=== PATIENT | male | born 1955 | race Caucasian/White ===

== ENCOUNTER 2020-03-20 11:10 | Outpatient (CLI) | payer BC, SELFPAY ==
[2020-03-21 02:13] LABS: SARS-CoV-2 RNA PCR Positive
== END 2020-03-20 11:11 | disposition home or self-care (01) ==
PROVIDERS: PCP Internal Medicine; Visit Provider Internal Medicine
DX: U07.1 COVID-19 (principal)
CPT/HCPCS: 87635; C9803; U0003

== ENCOUNTER 2020-05-08 11:57 | Outpatient (CLI) | payer BC, SELFPAY ==
--- NOTE | ~2020-05-08 | XR_ITS ---
EXAMINATION: XR chest 2V EXAM DATE: 05/08/2020 12:10 INDICATION: Chest pain center chest when abducting arms, heartburn x3mo. TECHNIQUE: Frontal and lateral projections of the chest obtained and reviewed. There is no prior tamera dy for comparison. FINDINGS: The lungs are clear. There are no pleural effusions. The cardiomediastinal silhouette is within normal limits. There is no pneumothorax suspected. The bones and soft tissues are unremarkab le. IMPRESSION: Unremarkable chest x-ray exam. 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
== END 2020-05-08 11:58 | disposition home or self-care (01) ==
LOC: CHSIMG 11:59
PROVIDERS: PCP Internal Medicine; Visit Provider Internal Medicine
DX: R07.9 Chest pain, unspecified (principal)
CPT/HCPCS: 71046

== ENCOUNTER 2020-05-20 12:31 | Outpatient (CLI) | payer BC, SELFPAY ==
--- NOTE | 2020-05-20 13:00 | EST_ITS ---
Patient Info Name: Ant Morgan Age: 64 years : 1955 Gender: Male Ht: 72 in Wt: 237 lbs BSA: 2.37 m2 HR: 67 bpm BP: 150 / 84 mmHg Heart Rhythm: Sinus Rhythm Technical Quality: Excellent Exam Date: 05/20/2020 12:49 PM Exam Location: [facility] Patient Status: Outpatient Admit Date: 05/20/2020 Staff Ordering Physician: Gallo Jacob MD Attending Provider: Gallo Jacob MD Exercise Technologist: Gracia Michaels CRT Exercise Physician: Niharika Ordonez CEP Exam Type: CA stress test treadmill Study Info Indications AbnormalEKG - An exercise stress test was performed. History/Risk Factors Hypertension: Yes Dyslipidemia: Yes Diabetes Mellitus: No History/Risk Factors HTN, Dyslipidemia. Abnormal EKG. Summary 1. 1. Abnormal Marcus exercise stress test for ischemic ST changes by ECG criteria. 2. 2. Good functional capacity, achieving 10 METs of workload. 3. 3. Appropriate HR response to exercise. 4. 4. Hypertensive response to exercise. 5. 5. Appropriate HR recovery at 1 minute post exercise. 6. 6. No imaging with stress testing. 7. 7. Dr. Jacob informed of the above results. Protocol: Marcus Stress ECG Details Stage: REST Duration (min): 0 min : 55 sec Speed (mph): 0.0 Grade (%): 0 HR (bpm): 65 SBP (mmHg): 150 DBP (mmHg): 84 METS: --- Stage: REST Duration (min): 2 min : 7 sec Speed (mph): 0.0 Grade (%): 0 HR (bpm): 75 SBP (mmHg): 150 DBP (mmHg): 84 METS: --- Stage: STAGE 1 Duration (min): 1 min : 0 sec Speed (mph): 1.7 Grade (%): 10 HR (bpm): 103 SBP (mmHg): 150 DBP (mmHg): 84 METS: --- Stage: STAGE 1 Duration (min): 2 min : 0 sec Speed (mph): 1.7 Grade (%): 10 HR (bpm): 107 SBP (mmHg): 150 DBP (mmHg): 84 METS: --- Stage: STAGE 1 Duration (min): 3 min : 0 sec Speed (mph): 1.7 Grade (%): 10 HR (bpm): 102 SBP (mmHg): 199 DBP (mmHg): 66 METS: --- Stage: STAGE 2 Duration (min): 1 min : 0 sec Speed (mph): 2.5 Grade (%): 12 HR (bpm): 120 SBP (mmHg): 199 DBP (mmHg): 66 METS: --- Stage: STAGE 2 Duration (min): 2 min : 0 sec Speed (mph): 2.5 Grade (%): 12 HR (bpm): 126 SBP (mmHg): 199 DBP (mmHg): 66 METS: --- Stage: STAGE 2 Duration (min): 3 min : 0 sec Speed (mph): 2.5 Grade (%): 12 HR (bpm): 133 SBP (mmHg): 204 DBP (mmHg): 86 METS: --- Stage: STAGE 3 Duration (min): 1 min : 0 sec Speed (mph): 3.4 Grade (%): 14 HR (bpm): 147 SBP (mmHg): 204 DBP (mmHg): 86 METS: --- Stage: STAGE 3 Duration (min): 2 min : 0 sec Speed (mph): 3.4 Grade (%): 14 HR (bpm): 161 SBP (mmHg): 204 DBP (mmHg): 86 METS: --- Stage: STAGE 3 Duration (min): 3 min : 0 sec Speed (mph): 3.4 Grade (%): 14 HR (bpm): 167 SBP (mmHg): 206 DBP (mmHg): 102 METS: ---
== END 2020-05-20 12:32 | disposition home or self-care (01) ==
LOC: CHSCARD 12:32
PROVIDERS: PCP Internal Medicine; Visit Provider Internal Medicine
DX: R94.31 Abnormal electrocardiogram [ECG] [EKG] (principal)
CPT/HCPCS: 93017

== ENCOUNTER 2020-05-31 02:19 | Outpatient (CLI) | payer BC, SELFPAY ==
[2020-05-31 19:10] LABS: SARS-CoV-2 RNA PCR Negative
== END 2020-05-31 02:20 | disposition home or self-care (01) ==
LOC: ANHCOVIDDT 02:19
PROVIDERS: PCP Internal Medicine; Visit Provider Specialist
DX: Z01.812 Encounter for preprocedural laboratory examination (principal); Z20.828 Contact with and (suspected) exposure to other viral communicable diseases
CPT/HCPCS: 87635; C9803; U0003

== ENCOUNTER 2020-06-03 08:30 | Day surgery (SDC) | payer BC, SELFPAY ==
[2020-05-31 15:56] VITALS: BMI 31.4
[2020-06-03] VITALS (10 sets, daily range): BP systolic 103–138; BP diastolic 61–76; PULSE 42–47; RESP 11–23; TEMP 36.2–36.6; O2SAT 96–100; BMI 30.9
[2020-06-03 07:35] LABS: Basophils Percent Auto 0.6 % (0.2-1.2); Eosinophils Absolute Auto 0.1 K/mm3 (0-0.3); Eosinophils Percent Auto 1.2 % (0-4.4); Hematocrit 48.4 % (42.0-52.0); Hemoglobin 17.1 g/dL (14.0-18.0); Immature Granulocyte Absolute 0.04 K/mm3 (0.00-0.031); Immature Granulocyte Percent A 0.6 % (0-0.5); Lymphocytes Absolute Auto 1.37 K/mm3 (0.9-3.2); Lymphocytes Percent Auto 19.9 % (18.3-44.2); Mean Corpuscular HGB Conc 35.3 g/dl (32-36); Mean Corpuscular Hemoglobin 32.1 pg (26-34); Mean Platelet Volume 10.5 fl (7.4-10.4); Monocytes Absolute Auto 0.5 K/mm3 (0.1-0.6); Monocytes Percent Auto 7.6 % (2.6-8.5); Neutrophils Absolute Auto 4.8 K/mm3 (1.3-6.7); Neutrophils Percent Auto 70.1 % (45.5-73.1); Platelet Count Result 151 k/mm3 (150-375); Red Blood Count 5.32 M/mm3 (4.6-6.20); Red Cell Distribution Width 12.6 % (11.5-14.5); White Blood Count 6.9 K/mm3 (4.5-10.0)
[2020-06-03 07:44] LABS: INR 0.9; Prothrombin Time 12.9 Seconds (11.1-14.7)
--- NOTE | 2020-06-03 08:32 | WPDMODSED ---
Moderate Sedation Note-Pt Data Patient Data Diagnosis: Atypical chest pain Abnormal stress test Hypertension Present Complaint: 64-year-old man with history of chest pain with change in body positions, history is very atypical of angina. Electrocardiographically abnormal stress test Procedure to be performed/Plan: Left heart catheterization Allergies Allergy/AdvReac Type Severity Reaction Status Date / Time No Known Allergies Allergy Verified 05/31/20 15:55 Home Medications Medication Instructions Recorded Confirmed Type allopurinol 100 mg tablet 200 mg PO BID 05/22/20 06/03/20 History aspirin 81 mg tablet,delayed 81 mg PO DAILY 05/22/20 06/03/20 History release hydrochlorothiazide 12.5 mg capsule 12.5 mg PO DAILY 05/22/20 06/03/20 History lisinopril 5 mg tablet 5 mg PO DAILY 05/22/20 06/03/20 History atenolol 12.5 mg PO DAILY 06/03/20 06/03/20 History atorvastatin 5 mg PO DAILY 06/03/20 06/03/20 History magnesium 1 tablet PO DAILY 06/03/20 06/03/20 History omega-3 fatty acids [Fish Oil] 1 cap PO DAILY 06/03/20 06/03/20 History Current Medications: Active Medications Sodium Chloride (Normal Saline Iv) 500 mls @ 100 mls/hr IV CONT .Q5H ASHELY Sedation/Anesthesia: No previous sedation/anesthesia problems (including family history). [facility] Past Medical History Medical History (Updated 05/22/20 @ 11:00 by Trever Pham DO) Gout HTN (hypertension) Hyperlipidemia Surgical History Surgical History (Updated 05/22/20 @ 10:37 by Elizabeth Olea CMA) History of hernia surgery Family History Family History (Updated 05/22/20 @ 10:37 by Elizabeth Olea CMA) Father Heart disease Gout Grandparent Heart disease Social History Social History (Updated 05/22/20 @ 10:38 by Elizabeth Olea CMA) Smoking packs per day: 1 Smoking cigarettes per day: 20.0 Years smoked: 15 Smoking pack-years: 15.00 Smoking status: Former smoker Alcohol intake: current Mod Sed Physical Exam Physical Exam Pre Procedural Exam: Normal: Appearance, Neck, Throat, Airway, Lungs, Heart Size, Heart Rate, Heart Rhythm, Neuro Exam and Extremities Hours since solid foods: 12 Hours since liquid intake: 12 Internal Medicine - PN: Obj Da Vital Signs Vital Signs: Vital Signs - 24 hr 06/03/20 07:40 Temperature 36.6 C Pulse Rate 47 L Respiratory Rate 17 Blood Pressure 138/66 Pulse Oximetry 98 Meds/Results Medications: Active Medications Generic Name Dose Route Start Last Admin Trade Name Aurelianoq PRN Reason Stop Dose Admin Sodium Chloride 500 mls @ 100 mls/hr 06/03/20 02:55 Normal Saline Iv IV CONT .Q5H ASHELY Labs CBC & Chem 7: 06/03/20 07:25 06/03/20 07:25 Labs: Laboratory Results - last 24 hr 06/03/20 06/03/20 07:25 07:25 WBC 6.9 RBC 5.32 Hgb 17.1 Hct 48.4 MCV 91.0 MCH 32.1 MCHC 35.3 RDW 12.6 Plt Count 151 MPV 10.5 H Immature Gran % (Auto) 0.6 H Neut % (Auto) 70.1 Lymph % (Auto) 19.9 [place] % (Auto) 7.6 Eos % (Auto) 1.2 Baso % (Auto) 0.6 Lymph # (Auto) 1.37 [place] # (Auto) 0.5 Eos # (Auto) 0.1 Baso # (Auto) 0.0 Abs Immat Gran (auto) 0.04 H Absolute Neuts (auto) 4.8 Absolute Nucleated RBC 0.0 Nucleated RBC % 0.0 PT 12.9 INR 0.9 ASA Classification/Sedation ASA Classification/Sedation ASA Class: II Emergent: No Risks: Risks, benefits and alternatives explained and patient/family accepted plan for sedation. Patient re-evaluated immediately prior to sedation.
[2020-06-03 08:36] LABS: Anion Gap 8 mmol/L (8-16); Blood Urea Nitrogen 21 mg/dL (9-20); Calcium 9.4 mg/dL (8.4-10.2); Carbon Dioxide 30 mmol/L (22-30); Chloride 102 mmol/L (98-107); Estimated CRCL calculation 83 ml/min; Estimated Glomerular Filt Rate > 60; Glucose 111 mg/dL (75-110); Potassium 3.8 mmol/L (3.4-5.0); Sodium 140 mmol/L (137-145)
--- NOTE | 2020-06-03 09:28 | WPDCARDPROC ---
Cardiac Cath Procedure Note Date of procedure:: 06/03/20 Performing physician:: Robert Ruiz MD Indication:: abnormal stress test Brief clinical history:: this is a 64-year-old man with no previous history of coronary disease. Has hypertension. Describes intermittent episodes of nonexertional chest pain that are non anginal by history. Exercise stress test was electrocardiographically abnormal Procedure Procedure performed:: coronary angiography left ventriculography Angio-Seal to femoral artery Sedation/Medication given:: fentanyl 50 mg Versed 2 mg case start time 9:03 a.m. case end time 9:21 a.m. sedation provided by Forrest Oliva RN, trained observer Access site:: right femoral artery Estimated blood loss:: 10-15 cc Procedure note:: patient was brought to the cardiac catheterization lab in the postabsorptive state the femoral triangle was prepared and draped in the usual fashion. Anesthesia was provided with 1% lidocaine infiltrated locally. Using the modified Seldinger technique the right common femoral artery was punctured and a 5 [place] vascular sheath was placed. After this left heart catheterization was carried out. A 5 [place] angled pigtail catheter was used to measure left-sided hemodynamics and to injected LV g in the our AO projection after this the pigtail catheter was removed. A 5 [place] FL4 catheter was used to engage inject the left coronary artery in multiple projections following this a 5 [place] JR4 catheter was used to engage inject the right coronary artery. The cine angiograms were then reviewed and the case was terminated angiogram was done of the femoral artery through the sheath after which a 6 [place] Angio-Seal device was deployed with a good hemostatic result. He was taken back to the holding area in stable condition. 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 Findings:: Hemodynamics: Central aortic pressure 115 over 46. Left ventricle 115 over 10 end-diastolic 12. No systolic gradient upon pullback across the aortic valve. Left ventricle: The LV is of normal size all segments contract appropriately the global ejection fraction I would visually estimated to be 50-55% the left main coronary is widely patent and large in caliber the LAD is a moderate caliber vessel extending down to around the apex the LAD and its branches are angiographically unremarkable the circumflex is large in caliber and dominant to the posterior circulation the circumflex the marginal as well as the posterior branches are angiographically unremarkable right coronary artery is small in caliber non dominant and gives rise to 2 right ventricular acute marginal branches. Right coronary artery is angiographically unremarkable. Conclusion:: 1. Left coronary dominant circulation with no evidence of coronary disease 2. normal left ventricular systolic function 3. Angio-Seal to right femoral artery 4. false positive stress test Robert Ruiz MD [facility]
--- NOTE | 2020-06-03 12:54 | SUR.PHASEII ---
1250- Patient discharged following LHC. Patient given discharge instructions and educational handouts on moderate sedation, LHC, and angioseal. All questions answered by RN- patient verbalizes understanding of information provided. VSS, denies pain, R groin soft and nontender with no evidence of bleeding or hematoma, palpable distal pulse, and patient A & O x4 at time of discharge. PIV removed. Patient picked up in vehicle by and taken out in wheelchair by staff.
== END 2020-06-03 12:50 | disposition home or self-care (01) ==
PROVIDERS: PCP Internal Medicine; Visit Provider Specialist
PROC: 4A023N7 Measurement of Cardiac Sampling and Pressure, Left Heart, Percutaneous Approach (ICD-10-PCS; CPT 93452; principal; 2020-06-03 08:30)
DX: R94.39 Abnormal result of other cardiovascular function study (principal); R07.89 Other chest pain; I10 Essential (primary) hypertension; E78.5 Hyperlipidemia, unspecified; M10.9 Gout, unspecified; Z87.891 Personal history of nicotine dependence
CPT/HCPCS: 36415; 80048; 85025; 85610; 93458; C1760; C1887; C1894; G0269

== ENCOUNTER 2021-01-24 07:45 | Outpatient (RCR) | payer OTHER, SELFPAY ==
--- NOTE | 2021-01-24 07:38 | PTOPEVAL ---
Thank you for referring Ant Morgan to [facility].? The patient is scheduled to be seen for therapy? __2__x/week for 12 visits. Please review, sign, date and return this plan of care MARVIN. I agree with and certify that the following plan of care is medically necessary. Referring Physician Date Admitting Provider: Attending Provider: Navneet Strickland, Referring Provider: *PT Outpatient Evaluation Start: 01/24/21 07:05 Freq: Status: Active Protocol: Document 01/24/21 07:00 TEE (Rec: 01/24/21 07:36 TEE [id number]) Therapy Assessment Status Assessment Status Assessment Status Evaluation Outpatient Past Medical History Neurological History Hx Neurological Disorders No Significant History Cardiovascular History Hx Hypercholesterolemia Yes Hx Hypertension Yes Respiratory History Hx Respiratory Disorders No Significant History Gastrointestinal History Hx Hernia Yes: 2006 Genitourinary History Hx Genitourinary Disorders No Significant History Musculoskeletal History Hx Gout Yes Hematological History Hx Hematological Disorders No Significant History Endocrine History Hx Endocrine Disorders No Significant History HEENT History Hx Tonsillectomy Yes Integumentary History Hx Skin Disorders No Significant History Reproductive History Hx Reproductive Disorders No Significant History Psychosocial History Hx Psychiatric Disorders No Significant History Pain History History of Any Previous or Ongoing No Significant History Instance of Pain Anesthesia History Hx Anesthesia Reactions No Significant History Other History Hx Cancer Yes: multiple skin CA spots removed from head/arm over 20 years Evaluation Information Problem Diagnosis s/p rotator cuff repair Onset 10/24/20 Subjective Information Pt. 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 He reports that on 10/24/20 he underwent surgery. He states that he has been using a CPM at home. He states that he has not been doing any other exercise at home. He describes no pain at rest. He states that he cannot reach to get his wallet out of his pants and cant put his belt on due to stiffness. He states that he cannot
--- NOTE | 2021-03-05 14:44 | PTOPEVAL ---
Thank you for referring Ant Morgan to [facility].? The patient is scheduled to be seen for therapy? ____x/week for ___ weeks. Please review, sign, date and return this plan of care MARVIN. I agree with and certify that the following plan of care is medically necessary. Referring Physician Date Admitting Provider: Attending Provider: Navneet Strickland, Referring Provider: *PT Outpatient Evaluation Start: 01/24/21 07:05 Freq: Status: Active Protocol: Document 03/04/21 10:00 RUST (Rec: 03/05/21 14:43 RUST [id number]) Therapy Assessment Status Assessment Status Assessment Status Re-evaluation Outpatient Past Medical History Neurological History Hx Neurological Disorders No Significant History Cardiovascular History Hx Hypercholesterolemia Yes Hx Hypertension Yes Respiratory History Hx Respiratory Disorders No Significant History Gastrointestinal History Hx Hernia Yes: 2006 Genitourinary History Hx Genitourinary Disorders No Significant History Musculoskeletal History Hx Gout Yes Hematological History Hx Hematological Disorders No Significant History Endocrine History Hx Endocrine Disorders No Significant History HEENT History Hx Tonsillectomy Yes Integumentary History Hx Skin Disorders No Significant History Reproductive History Hx Reproductive Disorders No Significant History Psychosocial History Hx Psychiatric Disorders No Significant History Pain History History of Any Previous or Ongoing No Significant History Instance of Pain Anesthesia History Hx Anesthesia Reactions No Significant History Other History Hx Cancer Yes: multiple skin CA spots removed from head/arm over 20 years Evaluation Information Problem Diagnosis s/p rotator cuff repair Onset 10/24/20 Subjective Information patient reports he feels good Query Text:As Reported By Patient/ at rest, but has increased Family pain in the R shoulder with reaching/lifting objects away from his body. he reports he continues to be on a 10lb lifting restriction below his waist. he reports he returns to the MD tomorrow 03/05/21. he reports he does not feel ready to return to work yet, and reports he does not want to lucero it. he reports he does feel therapy is helping his
--- NOTE | 2021-04-15 11:09 | PTOPEVAL ---
Thank you for referring Ant Morgan to [facility].? The patient is scheduled to be seen for therapy? ____x/week for ___ weeks. Please review, sign, date and return this plan of care MARVIN. I agree with and certify that the following plan of care is medically necessary. Referring Physician Date Admitting Provider: Attending Provider: Navneet Strickland, Referring Provider: *PT Outpatient Evaluation Start: 01/24/21 07:05 Freq: Status: Active Protocol: Document 04/15/21 09:59 RUST (Rec: 04/15/21 11:09 RUST [id number]) Therapy Assessment Status Assessment Status Assessment Status Re-evaluation Outpatient Past Medical History Neurological History Hx Neurological Disorders No Significant History Cardiovascular History Hx Hypercholesterolemia Yes Hx Hypertension Yes Respiratory History Hx Respiratory Disorders No Significant History Gastrointestinal History Hx Hernia Yes: 2005 Genitourinary History Hx Genitourinary Disorders No Significant History Musculoskeletal History Hx Gout Yes Hematological History Hx Hematological Disorders No Significant History Endocrine History Hx Endocrine Disorders No Significant History HEENT History Hx Tonsillectomy Yes Integumentary History Hx Skin Disorders No Significant History Reproductive History Hx Reproductive Disorders No Significant History Psychosocial History Hx Psychiatric Disorders No Significant History Pain History History of Any Previous or Ongoing No Significant History Instance of Pain Anesthesia History Hx Anesthesia Reactions No Significant History Other History Hx Cancer Yes: multiple skin CA spots removed from head/arm over 20 years Evaluation Information Problem Diagnosis s/p rotator cuff repair Onset 10/24/20 Subjective Information patient reports he feels Query Text:As Reported By Patient/ alright this date. he reports Family he has no pain at rest, but still pain with lifting overhead and out to his side with resistance and to the side with arom. he reports pain does not reach more than 3/10. he reports his shoulder is stronger than his last re- evaluation. Pain Assessment Timing of Pain Assessment Timing of Pain Assessment Assessment Pain Scale Pain Scale Used Numeric (1 - 10) Self Report Pain Assessment Right Shoulder(s) Reported Pain Level
== END 2021-04-24 18:00 | disposition still patient (30) ==
LOC: CHSPT 07:45
PROVIDERS: Visit Provider Orthopaedic Surgery Orthopaedic Surgery of the Spine
DX: S46.011A Strain of muscle(s) and tendon(s) of the rotator cuff of right shoulder, initial encounter (principal); Z98.890 Other specified postprocedural states; M25.511 Pain in right shoulder
CPT/HCPCS: 97014; 97110; 97161; 97530; G0283

== ENCOUNTER 2021-04-28 08:59 | Outpatient (RCR) | payer OTHER, SELFPAY ==
--- NOTE | 2021-05-06 10:00 | PTOPEVAL ---
Thank you for referring Ant Morgan to [facility].? The patient is scheduled to be seen for therapy? ____x/week for ___ weeks. Please review, sign, date and return this plan of care MARVIN. I agree with and certify that the following plan of care is medically necessary. Referring Physician Date Admitting Provider: Attending Provider: Navneet Strickland, Referring Provider: *PT Outpatient Evaluation Start: 05/01/21 09:44 Freq: Status: Active Protocol: Document 05/01/21 09:30 [facility] (Rec: 05/06/21 10:00 [facility] [email or web address]) Therapy Assessment Status Assessment Status Assessment Status Progress Outpatient Past Medical History Neurological History Hx Neurological Disorders No Significant History Cardiovascular History Hx Hypercholesterolemia Yes Hx Hypertension Yes Respiratory History Hx Respiratory Disorders No Significant History Gastrointestinal History Hx Hernia Yes: 2006 Genitourinary History Hx Genitourinary Disorders No Significant History Musculoskeletal History Hx Gout Yes Hematological History Hx Hematological Disorders No Significant History Endocrine History Hx Endocrine Disorders No Significant History HEENT History Hx Tonsillectomy Yes Integumentary History Hx Skin Disorders No Significant History Reproductive History Hx Reproductive Disorders No Significant History Psychosocial History Hx Psychiatric Disorders No Significant History Pain History History of Any Previous or Ongoing No Significant History Instance of Pain Anesthesia History Hx Anesthesia Reactions No Significant History Other History Hx Cancer Yes: multiple skin CA spots removed from head/arm over 20 years Evaluation Information Problem Diagnosis s/p rotator cuff repair Onset 10/24/20 Additional Evaluation Detail quick dash = 27% functionally declined Subjective Information patient reports he is feeling Query Text:As Reported By Patient/ stronger week by week. he Family reports he continues to have pain in the R shoulder with movement, but mostly only directly out to his side. he reports he is able to lift heavier weight with the R hand , but still struggles with anything overhead and more than 5lbs. he reports he is restricted to 5lbs overhead lifting and
--- NOTE | 2021-06-02 07:31 | PTOPEVAL ---
Thank you for referring Ant Hodges to [facility].? The patient is scheduled to be seen for therapy? ____x/week for ___ weeks. Please review, sign, date and return this plan of care MARVIN. I agree with and certify that the following plan of care is medically necessary. Referring Physician Date Admitting Provider: Attending Provider: Navneet Strickland, Referring Provider: *PT Outpatient Evaluation Start: 05/01/21 09:44 Freq: Status: Active Protocol: Document 05/30/21 10:00 [facility] (Rec: 06/02/21 07:30 [facility] Filej) Therapy Assessment Status Assessment Status Assessment Status Discharge - Pt Not Present Outpatient Past Medical History Neurological History Hx Neurological Disorders No Significant History Cardiovascular History Hx Hypercholesterolemia Yes Hx Hypertension Yes Respiratory History Hx Respiratory Disorders No Significant History Gastrointestinal History Hx Hernia Yes: 2006 Genitourinary History Hx Genitourinary Disorders No Significant History Musculoskeletal History Hx Gout Yes Hematological History Hx Hematological Disorders No Significant History Endocrine History Hx Endocrine Disorders No Significant History HEENT History Hx Tonsillectomy Yes Integumentary History Hx Skin Disorders No Significant History Reproductive History Hx Reproductive Disorders No Significant History Psychosocial History Hx Psychiatric Disorders No Significant History Pain History History of Any Previous or Ongoing No Significant History Instance of Pain Anesthesia History Hx Anesthesia Reactions No Significant History Other History Hx Cancer Yes: multiple skin CA spots removed from head/arm over 20 years PT Clinical Summary Clinical Summary Protocol: PTEVCODE PT Clinical Summary mr. hodges has called in to report he is unable to make it to therapy today due to a family emergency. 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 he is now able to lift and raise over 10lbs above his head in repetition, 30+lbs below his waist in repetition, and displays WFL R shoulder mobility without pain. he reports no fears or hesitations about returning to his prior lev
== END 2021-05-27 10:33 | disposition home or self-care (01) ==
LOC: CHSPT 08:59
PROVIDERS: Visit Provider Orthopaedic Surgery Orthopaedic Surgery of the Spine
DX: S46.011A Strain of muscle(s) and tendon(s) of the rotator cuff of right shoulder, initial encounter (principal); Z98.890 Other specified postprocedural states; M25.511 Pain in right shoulder
CPT/HCPCS: 97110; 97140; 97530

== ENCOUNTER 2021-09-28 11:38 | Inpatient (IN) | payer BC, MEDICARE, SELFPAY ==
[2021-09-28] VITALS (21 sets, daily range): BP systolic 98–124; BP diastolic 46–70; PULSE 59–72; RESP 13–23; TEMP 36.1–37.1; O2SAT 93–100
--- NOTE | ~2021-09-28 | XR_ITS ---
EXAMINATION: XR abdomen NG/feed tube insert INDICATION: Nasogastric tube insertion TECHNIQUE: Portable AP KUB-NG at 1401 hours COMPARISON: CT from today FINDINGS: The nasogastric tube is in the stomach. Multiple dilated loops of small bowel are evident. Contrast from earlier CT partially opacifies the urinary tract. IMPRESSION: 1. Nasogastric tube in the stomach. 2. Small bowel obstruction. Reviewed, dictated and finalized at location A.
--- NOTE | ~2021-09-28 | XR_ITS ---
EXAMINATION: XR sm bowel follow through WS EXAM DATE: 09/29/2021 10:10 INDICATION: Small bowel obstruction, hypaque thru NG. TECHNIQUE: Television Tube Inspector radiograph was acquired. Omnipaque/water soluble solution administered for small flakito wel exam performed by radiologist Navneet Nuñez M.D.. Spot images of the terminal ileum were acquired. Pulsed dose reduction fluoroscopy was used with fluoroscopic time of 0.0 minutes. A total of 7 i mages obtained for the exam. Correlation is made to CT abdomen pelvis from yesterday. FINDINGS: Television Tube Inspector image demonstrates feeding tube in expected position. There are multiple loops of sev erely dilated jejunum. The ileum is normal in caliber. No masses identified. There is a normal transi t time to the colon of 1.5 hours. Appendix fills with contrast. No contrast extravasation. IMPRESSION: Severely distended jejunum, normal calibered ileum. Appearance most consistent with part ial small bowel obstruction, normal transit time. Reviewed, dictated and finalized at location A. IMPRESSION: Severely distended jejunum, normal calibered ileum. Appearance mos t consistent with partial small bowel obstruction, normal transit time.
--- NOTE | ~2021-09-28 | CT_ITS ---
EXAMINATION: CT abdomen pelvis w con INDICATION: Abdominal distention TECHNIQUE: Computed tomographic images of the abdomen and pelvis were obtained after the administrati on of 100 cc of Omnipaque 350 intravenous contrast. The dose-length product (DLP) was 1067.41 mGy-cm. Automated exposure control and iterative reconstruction technique were employed. COMPARISON: None available FINDINGS: Minimal dependent atelectasis is present in the lung bases. The heart size is normal. Calci fied pulmonary nodules and calcified right hilar and mediastinal lymph nodes are consistent with old granulomatous disease. Stones are present in the gallbladder which is mildly distended. Punctate calc ifications in an otherwise normal spleen likely represent healed granulomatous disease. The liver, pa ncreas, and adrenal glands are normal. Hypoattenuating lesions in the kidneys, measuring up to 6 mm o n the right, are too small to characterize but likely represent cysts. There is a 3.6 cm fusiform inf rarenal abdominal aortic aneurysm. No pathologically enlarged abdominal or pelvic lymph nodes are myla ntified. There are multiple moderately dilated loops of fluid-filled small bowel. There is a possible transition point in left mid abdomen (coronal reconstructed images 57-60). There is a moderate volum e of liquid stool in the colon. The appendix is normal. There is severe lumbar spondylosis. 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 IMPRESSION: 1. Dilated small bowel with possible transition in the left midabdomen, consistent with obstruction. 2. Cholelithiasis and gallbladder distention which could reflect cholecystitis. Recommend correlation for right upper quadrant tenderness. 3. Fusiform infrarenal abdominal aortic aneurysm. Reviewed, dictated and finalized at location A. IMPRESSION: 1. Dilated small bowel with possible transition in the left midabdomen, consist ent with obstruction. 2. Cholelithiasis and gallbladder distention which could reflect cholecystitis. Recommend correlation for right upper quadrant tenderness. 3. Fusiform infrarenal abdominal aortic aneurysm.
--- NOTE | ~2021-09-28 | US_ITS ---
EXAMINATION: US abdomen limited DATE: 09/28/2021 13:48 INDICATION: Right upper quadrant pain, TECHNIQUE: Multiple grayscale and Doppler ultrasound images of the abdomen were obtained. COMPARISON: CT from today FINDINGS: Bowel gas obscures visualization of the pancreas. The liver is normal with normal echogenic ity and echotexture. No surface nodularity. Normal hepatopetal flow in the main portal vein. A stone is present in the gallbladder which is distended. There is no definite gallbladder wall thickening or pericholecystic fluid. The normal common bile duct measures 5 mm. There was no sonographic [place] si gn however sensitivity is diminished by pain medication. IMPRESSION: 1. Gallbladder distention and cholelithiasis without definite pericholecystic fluid or gallbladder wa ll thickening. Findings are equivocal for acute cholecystitis. Consider nuclear hepatobiliary scan. Reviewed, dictated and finalized at location A. IMPRESSION: 1. Gallbladder distention and cholelithiasis without definite pericholecystic f luid or gallbladder wall thickening. Findings are equivocal for acute cholecyst itis. Consider nuclear hepatobiliary scan.
[2021-09-28 12:11] LABS: Basophils Percent Auto 0.2 % (0.2-1.2); Eosinophils Percent Auto 0.2 % (0-4.4); Hematocrit 48.5 % (42.0-52.0); Hemoglobin 16.7 g/dL (14.0-18.0); Immature Granulocyte Absolute 0.03 K/mm3 (0.00-0.031); Immature Granulocyte Percent A 0.5 % (0-0.5); Immature Platelet Fraction Pct 5.7 % (0.9-11.2); Lymphocytes Percent Auto 9.5 % (18.3-44.2); Mean Corpuscular HGB Conc 34.4 g/dl (32-36); Mean Corpuscular Hemoglobin 31.2 pg (26-34); Mean Corpuscular Volume 90.5 fl (80-100); Mean Platelet Volume 10.6 fl (7.4-10.4); Monocytes Absolute Auto 0.4 K/mm3 (0.1-0.6); Monocytes Percent Auto 6.8 % (2.6-8.5); Neutrophils Absolute Auto 5.3 K/mm3 (1.3-6.7); Neutrophils Percent Auto 82.8 % (45.5-73.1); Platelet Count Result 146 k/mm3 (150-375); Red Blood Count 5.36 M/mm3 (4.6-6.20); Red Cell Distribution Width 12.7 % (11.5-14.5); White Blood Count 6.3 K/mm3 (4.5-10.0)
[2021-09-28 12:19] LABS: Alanine Aminotransferase 20 U/L (4-50); Albumin Level 4.3 g/dL (3.5-5.1); Alkaline Phosphatase 57 U/L (38-126); Anion Gap 8 mmol/L (8-16); Aspartate Amino Transferase 25 U/L (17-59); Bilirubin,Total 1.6 mg/dL (0.2-1.3); Blood Urea Nitrogen 21 mg/dL (9-20); Calcium 8.3 mg/dL (8.4-10.2); Carbon Dioxide 28 mmol/L (22-30); Chloride 97 mmol/L (98-107); Estimated CRCL calculation 82 ml/min; Estimated Glomerular Filt Rate > 60; Glucose 129 mg/dL (65-110); Lipase 30 U/L (23-300); Potassium 3.6 mmol/L (3.4-5.0); Sodium 133 mmol/L (137-145)
[2021-09-28 12:22] LABS: Add Urine Microscopic? YES; Appearance Urine Clear (Clear); Bacteria Urine Trace /hpf; Bilirubin Urine Negative (Negative); Blood Urine Negative (Negative); Color Urine Amber (Yellow); Glucose Urine UA Negative (Negative); Ketones Urine Trace mg/dL (Negative); Leukocyte Esterase Ur Negative LEU/UL (Negative); Mucus Urine Rare /lpf; Nitrate Urine Negative (Negative); Protein Urine Negative (Negative); RBC Urine 0-2 /hpf (0-2); Urobilinogen Urine Negative mg/dL (<2.0); WBC Urine 0-3 /hpf
[2021-09-28 12:26] LABS: Estimated CRCL calculation 82 ml/min; Estimated Glomerular Filt Rate > 60
[2021-09-28 12:29] LABS: Lactic Acid Reflex 2.6 mmol/L (0.7-2.1)
[2021-09-28] MEDS: SODIUM CHLORIDE 0.9% IV 1,000 ML 999 ML IV CONT (12:41)
[2021-09-28] MEDS: MORPHINE SULFATE (*CRX) 4 MG/ML INJ IV PUSH ×2 (12:42→14:32)
[2021-09-28] MEDS: ONDANSETRON INJ 4 MG/2 ML VIAL IV PUSH (12:42)
--- NOTE | 2021-09-28 13:17 | ED.ABDPAIN ---
HPI - Abdominal Pain General Chief Complaint: Abdominal Pain Stated Complaint: abd pain Time Seen by Provider: 09/28/21 12:21 Source: patient and family Limitations: no limitations History of Present Illness HPI narrative: Patient is 65 years old white male came to the emergency room because of diffuse abdominal pain started yesterday morning, bloating, and intermittent, worse sitting up, nothing make it better, patient feels like he needs to go to the bathroom to have a bowel movement. Associated with nausea. Last meal was yesterday. History of hypertension, hyperlipidemia, patient does not smoke drinks occasionally does not use drugs. No history of abdominal surgery Related Data Home Medications Medication Instructions Recorded Confirmed allopurinol 100 mg tablet 200 mg PO BID 05/22/20 06/13/20 aspirin 81 mg tablet,delayed 81 mg PO DAILY 05/22/20 06/13/20 release hydrochlorothiazide 12.5 mg capsule 12.5 mg PO DAILY 05/22/20 06/13/20 atorvastatin 5 mg PO DAILY 06/03/20 06/13/20 magnesium 1 tablet PO DAILY 06/03/20 06/13/20 omega-3 fatty acids 1 cap PO DAILY 06/03/20 06/13/20 Allergies Allergy/AdvReac Type Severity Reaction Status Date / Time No Known Allergies Allergy Verified 09/28/21 11:43 Review of Systems Review of Systems: CONSTITUTIONAL: Denies fever, chills, or sweats. EYES: Denies visual changes, redness, or discharge. ENT: Denies rhinorrhea, congestion, sore throat, or otalgia. CARDIOVASCULAR: Denies chest pain, palpitations, or edema. RESPIRATORY: Denies cough or dyspnea. GASTROINTESTINAL: Denies abdominal pain, nausea, vomiting, or diarrhea. GENITOURINARY: Denies dysuria or hematuria. SKIN: Denies rash or itching. MUSCULOSKELETAL: Denies back pain, joint pain, or myalgia. NEUROLOGIC: Denies headache, numbness, or weakness. PSYCHIATRIC: Denies anxiety or depression. [facility] Past Medical History Medical History Gout HTN (hypertension) Hyperlipidemia Surgical History Surgical History History of hernia surgery Family History Family History Father Heart disease Gout Grandparent Heart disease Social History Social History Smoking packs per day: 1 Smoking cigarettes per day: 20.0 Years smoked: 15 Smoking pack-years: 15.00 Smoking status: Former smoker Alcohol intake: current Exam Narrative: General appearance: Well-developed, well-nourished, at the bedside Skin: Normal color Head: Normocephalic, nontraumatic Eyes: Clear conjunctiva ENT: Oropharynx normal, ears normal, nose normal Neck: Supple, nontender Chest and respiratory: Airway patent, no respiratory distress, no accessory muscle use Heart: Regular rate/rhythm Abdomen: Soft, distended, no bowel sounds, no organomegaly, diffuse tenderness, no guarding or rebound Vascular: Normal peripheral pulses, normal capillary refill. Musculoskeletal: Normal range of motion, nontender back Neurologic: Alert and oriented ?3, [employer] is normal as tested, no gross motor deficit Course Course Emergency Course: Patient presents with abdominal pain, work-up showed small bowel obstruction. Consultations Consultation #1: Dr. Tello Date: 09/28/21 Time: 13:32 Vital Signs Vital signs: Vital Signs Temperature 36.1 C L 09/28/21 11:40 Pulse Rate 72 09/28/21 11:40 Respiratory Rate 18 09/28/21 11:40 Blood Pressure 114/46 L 09/28/21 11:40 Pulse Oximetry 97 09/28/21 11:40 Temperature 36.1 C L 09/28/21 11:40 Pulse Rate 61 09/28/21 12:3
--- NOTE | 2021-09-28 14:45 | PM.IMHP ---
H&P: HPI History of Present Illness Date/Time: 09/28/21 14:45 Chief Complaint: Abdominal pain. Narrative: This is a very pleasant 65-year-old male with hypertension and hyperlipidemia who presented to the emergency department from home for evaluation of abdominal pain. He reports the gradual onset of diffuse abdominal cramping which he 1st noted upon waking from sleep yesterday morning. Initially he thought that he needed to have a bowel movement however reports passing only a very small, hard stool. Since that time his abdomen has become progressively distended and uncomfortable. He has also had some nausea but no vomiting. His last meal was sometime yesterday. CT of the abdomen and pelvis showed dilated small bowel with possible transition in the left mid abdomen consistent with obstruction as well as cholelithiasis and gallbladder distention. An NG tube has since been inserted and he is being admitted for further care. He had a similar episode at the end of July however it was self-limiting and did not last longer than a day. He has no history of bowel obstructions and his only surgery in the area was that of an open left inguinal hernia repair many years ago. Regarding the gallbladder findings, he has never had signs or symptoms of gallbladder disease and he specifically denies right upper quadrant pain at this time. He also denies fever, chills, sweats, chest pain, shortness breast, and vomiting. Of note the patient does have a history of colon polyps with last colonoscopy being in 2018, due for another in the 2 years. Review of Systems Review of Systems: Twelve systems were reviewed and are negative except for as per HPI. [facility] Past Medical History Medical History Aneurysm of infrarenal abdominal aorta 3.6 cm fusiform infrarenal abdominal aortic aneurysm noted on CT on 09/28/2021. Gout Hyperlipidemia Hypertension Surgical History Surgical History (Updated 09/28/21 @ 14:15 by Luz Maria Junior PA-C) History of basal cell carcinoma excision (05/2012) Right ear. History of cardiac catheterization (05/2020) Patient was having chest pain with a positive stress test. No evidence of coronary disease on cath. History of inguinal hernia repair (2005) History of tonsillectomy Family History Family History (Updated 09/28/21 @ 14:15 by Luz Maria Junior PA-C) Father Heart disease Gout Diabetes mellitus Grandparent Heart disease Social History Social History (Updated 09/28/21 @ 19:58 by Luz Maria Junior PA-C) Social History: Surrogate decision maker: Cara Morgan, . Code status: Full code. Smoking packs per day: 1 Smoking cigarettes per day: 20.0 Years smoked: 15 Smoking pack-years: 15.00 Smoking status: Never smoker Second hand tobacco smoke exposure: No Alcohol intake: current Drinks per week: 1 Substance use: never Living arrangements: with family Occupation/Education: retired Spiritual care concerns: No Meds Home Medications and Allergies Home Medications Medication Instructions Recorded Confirmed Type allopurinol 100 mg tablet 200 mg PO BID 05/22/20 09/28/21 History aspirin 81 mg tablet,delayed 81 mg PO DAILY 05/22/20 09/28/21 History release hydrochlorothiazide 12.5 mg capsule 12.5 mg PO DAILY 05/22/20 09/28/21 History atorvastatin 5 mg PO DAILY 06/03/20 09/28/21 History magnesium 1 tablet PO DAILY 06/03/20 09/28/21 History omega-3 fatty acids 1 cap PO DAILY 06/03/20 09/28/21 History lisinopril 5 mg PO BID 09/28/21 09/28/21 History Allergies Allergy/AdvReac Type Severity Reaction Status Date / Time No Known Allergies Allergy Verified 09/28/21 11:43 Vital Signs Vital Signs - 24 hr 09/28/21 11:40 09/28/21 11:48 09/28/21 11:49 Temperature 97.0 F L Pulse Rate 72 60 63 Respiratory Rate 18 23 H 23 H Blood Pressure 114/46 L 124/70 Pulse Oximetry 97 98 97 09/28/21 12:00 09/28/21
[2021-09-28 15:19] LABS: Reflex Lactic Acid Yes or No Add Lactic
[2021-09-28] MEDS: LACTATED RINGERS 1,000 ML 150 ML IV CONT ×2 (15:30→20:20)
[2021-09-28 16:02] LABS: Lactic Acid 1.6 mmol/L (0.7-2.1)
[2021-09-28] MEDS: PHENOL/SOD PHENO SPRAY CHERRY (*BKC) 1 SPRAY MUCOUS MEM (17:55)
[2021-09-28] MEDS: diphenhydrAMINE HCl INJ 50 MG/ML VIAL 25 MG IV PUSH (21:41)
[2021-09-29] MEDS: LACTATED RINGERS 1,000 ML 150 ML IV CONT (04:51)
[2021-09-29 06:00] VITALS: BP 103/53; PULSE 67; RESP 18; TEMP 36.5; O2SAT 93
[2021-09-29 06:08] LABS: Magnesium 1.9 mg/dL (1.6-2.3)
[2021-09-29 06:10] LABS: Basophils Percent Auto 0.3 % (0.2-1.2); Eosinophils Percent Auto 0.3 % (0-4.4); Hematocrit 40.5 % (42.0-52.0); Hemoglobin 14.1 g/dL (14.0-18.0); Immature Granulocyte Absolute 0.02 K/mm3 (0.00-0.031); Immature Granulocyte Percent A 0.3 % (0-0.5); Immature Platelet Fraction Pct 5.1 % (0.9-11.2); Lymphocytes Absolute Auto 0.76 K/mm3 (0.9-3.2); Lymphocytes Percent Auto 10.6 % (18.3-44.2); Mean Corpuscular HGB Conc 34.8 g/dl (32-36); Mean Corpuscular Hemoglobin 31.2 pg (26-34); Mean Corpuscular Volume 89.6 fl (80-100); Mean Platelet Volume 10.9 fl (7.4-10.4); Monocytes Absolute Auto 0.6 K/mm3 (0.1-0.6); Monocytes Percent Auto 8.3 % (2.6-8.5); Neutrophils Absolute Auto 5.8 K/mm3 (1.3-6.7); Neutrophils Percent Auto 80.2 % (45.5-73.1); Platelet Count Result 114 k/mm3 (150-375); Red Blood Count 4.52 M/mm3 (4.6-6.20); Red Cell Distribution Width 12.7 % (11.5-14.5); White Blood Count 7.2 K/mm3 (4.5-10.0)
[2021-09-29 08:00] VITALS: O2SAT 93
--- NOTE | 2021-09-29 10:46 | PM.IMPN ---
Progress Note: A&P Assessment and Plan (1) Small bowel obstruction: Code(s): K56.609 - Unspecified intestinal obstruction, unspecified as to partial versus complete obstruction Status: Acute Assessment and Plan: May very well be related to adhesions from prior hernia surgery. Continue NPO status and NG tube to suction. Surgery consulted and their input is appreciated. (2) Cholelithiasis: Code(s): K80.20 - Calculus of gallbladder without cholecystitis without obstruction Status: Acute Assessment and Plan: CT shows cholelithiasis and gallbladder distension without definite pericholecystic fluid or gallbladder wall thickening, equivocal for acute cholecystitis. By history and exam this seems less likely however will continue empiric antibiotics pending possible HIDA scan. Surgery consult (3) Aneurysm of infrarenal abdominal aorta: Code(s): I71.4 - Abdominal aortic aneurysm, without rupture Status: Acute Assessment and Plan: Patient and aware about a 3.6 fusiform infrarenal abdominal aortic aneurysm noted on imaging today. He will need outpatient monitoring. (4) Hyperlipidemia: Code(s): E78.5 - Hyperlipidemia, unspecified Status: Acute Assessment and Plan: Atorvastatin (5) Hypertension: Code(s): I10 - Essential (primary) hypertension Status: Acute Assessment and Plan: Blood pressures were reviewed and they are stable. Lisinopril and hydrochlorothiazide Subjective Date/time seen: 09/29/21 10:46 Interval history: Patient presented to the hospital with abdominal pain CT scan was done showed bowel obstruction with transition point nasogastric tube was placed started on IV hydration surgery consulted Patient feels weak Patient denies fever headache chest pain shortness of breath I am seeing the patient for bowel obstruction Objective Data Vital Signs Vital Signs: Vital Signs - 24 hr 09/28/21 11:40 09/28/21 11:48 09/28/21 11:49 Temperature 97.0 F L Pulse Rate 72 60 63 Respiratory Rate 18 23 H 23 H Blood Pressure 114/46 L 124/70 Pulse Oximetry 97 98 97 09/28/21 12:00 09/28/21 12:01 09/28/21 12:15 Temperature Pulse Rate 62 64 59 L Respiratory Rate 19 14 18 Blood Pressure 105/62 Pulse Oximetry 98 99 96 09/28/21 12:16 09/28/21 12:34 09/28/21 12:35 Temperature Pulse Rate 62 61 61 Respiratory Rate 20 16 20 Blood Pressure 120/61 115/57 L Pulse Oximetry 98 98 100 09/28/21 12:36 09/28/21 12:45 09/28/21 12:46 Temperature Pulse Rate 62 67 68 Respiratory Rate 16 17 17 Blood Pressure 106/60 Pulse Oximetry 98 96 09/28/21 13:00 09/28/21 13:01 09/28/21 13:15 Temperature Pulse Rate 70 72 69 Respiratory Rate 15 17 15 Blood Pressure 104/58 L Pulse Oximetry 93 94 95 09/28/21 13:16 09/28/21 13:30 09/28/21 13:31 Temperature Pulse Rate 66 65 Respiratory Rate 16 13 Blood Pressure 98/64 L 111/61 Pulse Oximetry 96 96 09/28/21 14:35 09/28/21 14:36 09/28/21 21:07 Temperature 98.7 F Pulse Rate 67 68 Respiratory Rate 16 18 Blood Pressure 113/54 L 115/60 Pulse Oximetry 97 96 94 09/29/21 06:00 Temperature 97.7 F Pulse Rate 67 Respiratory Rate 18 Blood Pressure 103/53 L Pulse Oximetry 93 Intake/Output Intake/Output: Intake & Output 09/26/21 09/27/21 09/28/21 09/29/21 23:59 23:59 23:59 23:59 Intake Total 2100 1000 Output Total 500 Balance 2100 500 Meds/Results Medications: Active Medications Generic Name Dose Route Start Last Admin Trade Name Freq PRN Reason Stop Dose Admin Hydromorphone HCl 0.5 mg 09/28/21 13:33 Hydromorphone Hcl Inj (*Crx) 1 Mg/Ml Syr IV PUSH Q4H PRN Pain Rated 7-10 Acetaminophen 1,000 mg in 100 mls @ 400 mls/hr 09/28/21 13:33 Ofirmev 1,000 Mg Ivpb IVPB 09/29/21 13:32 Q6H PRN Mild Pain (1-3) or Fever Lactated Ringer's 1,000 mls @ 100 mls/hr 09/28/21 13:35 09/29/21 04
--- NOTE | 2021-09-29 11:36 | PM.CNGS ---
Assessment and Plan Assessment and plan (1) Small bowel obstruction: Code(s): K56.609 - Unspecified intestinal obstruction, unspecified as to partial versus complete obstruction Status: Acute Assessment and Plan: exam benign, cont conservative mgmt c NG decompression, bowel rest, will get SBS for further evaluation (2) Cholelithiasis: Code(s): K80.20 - Calculus of gallbladder without cholecystitis without obstruction Status: Acute Assessment and Plan: likely incidental finding, no s/s cholecystitis on history or exam History of Present Illness Consult details Consult date: 09/29/21 Reason for consult: abdominal pain Requesting physician: Luz Maria Junior PA-C Narrative: Pt is a 65 y/o M presenting to ED c/o diffuse, crampy abdominal pain. Pt reports pain started yesterday am and progressively worsened. Pt reports he did have a small BM after episode started, but he had to strain quite a bit. Pt reports assoc nausea, bloating, abd dist. Pt reports similar episode approximately one month ago although it resolved without any specific intervention after a few hours. Review of Systems Constitutional: Constitutional: Reports anorexia, Denies chills, Denies fatigue, Denies fever(s), Denies headache(s), Reports poor appetite, Denies weakness, Denies weight gain and Denies weight loss Eyes: Eyes: Reports no additional eye complaints ENT: Reports system reviewed and no additional complaints, except as documented Cardiovascular: Cardiovascular: Reports no additional cardiovascular complaints Respiratory: Respiratory: Reports no additional respiratory complaints Gastrointestinal: Gastrointestinal: Reports as per HPI, Reports abdominal pain, Reports bloating, Reports constipation, Reports GI cramping, Reports early satiety, Reports nausea and Denies vomiting Genitourinary: Genitourinary: Reports no additional male genitourinary complaints Musculoskeletal: Musculoskeletal: Reports no additional musculoskeletal complaints Integumentary/Breasts: Skin/Breast: Reports system reviewed and no additional complaints, except as docu Neurologic: Reports system reviewed and no additional complaints, except as documented Psychiatric: Psychiatric: Reports no additional psychiatric complaints Endocrine: Endocrine: Reports no additional endocrine complaints Hematologic/Lymphatic: Hematologic/Lymphatic: Reports no additional hematologic/lymphatic complaints Allergic/Immunologic: Allergic/Immunologic: Reports no additional allergic/immunologic complaints PMFSH Past Medical History Medical History Aneurysm of infrarenal abdominal aorta 3.6 cm fusiform infrarenal abdominal aortic aneurysm noted on CT on 09/28/2021. Gout Hyperlipidemia Hypertension Surgical History Surgical History History of basal cell carcinoma excision (05/2012) Right ear. History of cardiac catheterization (05/2020) Patient was having chest pain with a positive stress test. No evidence of coronary disease on cath. History of inguinal hernia repair (2005) History of tonsillectomy Family History Family History Father Heart disease Gout Diabetes mellitus Grandparent Heart disease Social History Social History Social History: Surrogate decision maker: Cara Morgan, . Code status: Full code. Smoking packs per day: 1 Smoking cigarettes per day: 20.0 Years smoked: 15 Smoking pack-years: 15.00 Smoking status: Never smoker Second hand tobacco smoke exposure: No Alcohol intake: current Drinks per week: 1 Substance use: never Living arrangements: with family Occupation/Education: retired Spiritual care concerns: No Meds Home Medications and Allergies Home Medications Med
[2021-09-29 14:00] VITALS: BP 124/67; PULSE 79; RESP 19; TEMP 36.3; O2SAT 97
[2021-09-29] MEDS: LACTATED RINGERS 1,000 ML 100 ML IV CONT ×2 (20:38→23:01)
[2021-09-29] MEDS: MELATONIN 5 MG TABLET PO (20:38)
[2021-09-29 22:00] VITALS: BP 111/39; PULSE 62; RESP 18; TEMP 36.1; O2SAT 95
[2021-09-30 06:00] VITALS: BP 125/60; PULSE 61; RESP 18; TEMP 36.2; O2SAT 95
[2021-09-30 08:19] VITALS: O2SAT 95
--- NOTE | 2021-09-30 09:29 | PM.DS ---
DS: Admitting Diagnosis Discharge Date 09/30/2021 Admitting Diagnosis Abdominal pain DS: Discharge Diagnosis Discharge Diagnosis (1) Small bowel obstruction: Code(s): K56.609 - Unspecified intestinal obstruction, unspecified as to partial versus complete obstruction Status: Acute Assessment and Plan: Probably related to adhesions from prior hernia surgery. Status post NPO nasogastric tube placement surgery consult patient condition continued to improve patient nasogastric tube was removed diet was tolerated (2) Cholelithiasis: Code(s): K80.20 - Calculus of gallbladder without cholecystitis without obstruction Status: Acute Assessment and Plan: CT shows cholelithiasis and gallbladder no evidence of cholecystitis follow-up with surgery as outpatient (3) Aneurysm of infrarenal abdominal aorta: Code(s): I71.4 - Abdominal aortic aneurysm, without rupture Status: Acute Assessment and Plan: Patient and aware about a 3.6 fusiform infrarenal abdominal aortic aneurysm noted on imaging today. He will need outpatient monitoring. Patient is aware (4) Hyperlipidemia: Code(s): E78.5 - Hyperlipidemia, unspecified Status: Acute Assessment and Plan: Atorvastatin (5) Hypertension: Code(s): I10 - Essential (primary) hypertension Status: Acute Assessment and Plan: Blood pressures were reviewed and they are stable. Lisinopril and hydrochlorothiazide DS: Summary Hospital Course Hospital Course: Patient presented to the hospital with abdominal pain was found to have bowel obstruction with transition point treated with nasogastric tube IV fluid pain medication surgery was consulted patient condition continued to improve nasogastric tube was removed patient tolerated diet follow-up with surgery as outpatient Cholelithiasis follow-up with surgery as outpatient Aortic aneurysm follow-up with PCP as outpatient Time Spent with Patient Time attestation: Total time spent providing and/or coordinating discharge services: Exam Narrative: Alert Chest no wheeze crackles Abdomen nontender nondistended CVS S1 + S2 Lower extremity edema Discharge Plan Discharge Attending physician on discharge: Michi Bejarano M.A. Consulting providers: Carlita Tello Discharging Clinician: Michi Bejarano M.A. Patient Disposition: Home, Self-Care Activity: as tolerated Diet: as tolerated Patient Instructions: Antibiotic Form Stand Alone Forms: General Discharge Information Follow-up/Referrals: Carlita Tello MD [Physician] - Gallo Jacob MD [Primary Care Provider] - Discharge Medications: Continued allopurinol 100 mg tablet 200 mg PO BID RF: 0 hydrochlorothiazide 12.5 mg capsule 12.5 mg PO DAILY RF: 0 aspirin [Adult Aspirin Regimen] 81 mg tablet,delayed release (DR/EC) 81 mg PO DAILY RF: 0 atorvastatin 10 mg Tablet 5 mg PO DAILY RF: 0 omega-3 fatty acids Capsule 1 cap PO DAILY RF: 0 magnesium Tablet 1 tablet PO DAILY RF: 0 lisinopril 5 mg tablet 5 mg PO BID RF: 0 Date of admission: 09/28/21 13:33 Primary Care Provider: Gallo Jacob Admitting Provider: Michi Bejarano M.A. Attending physician on admission: Michi Bejarano M.A. Condition: Stable Quality VTE Prophylaxis VTE prophylaxis: mechanical ordered
--- NOTE | 2021-09-30 09:52 | PM.PNGS ---
Progress Note: A&P Assessment and Plan (1) Small bowel obstruction: Code(s): K56.609 - Unspecified intestinal obstruction, unspecified as to partial versus complete obstruction Status: Acute Assessment and Plan: Resolving. May advance diet as tolerated. If patient tolerates a soft diet for lunch, then okay from our standpoint to discharge him home. Follow up only p.r.n.. (2) Cholelithiasis: Code(s): K80.20 - Calculus of gallbladder without cholecystitis without obstruction Status: Acute Assessment and Plan: Encouraged a low-fat diet on discharge. Discussed s/s of cholecystitis. Follow-up as needed if he begins having symptoms and would like to discuss surgical options. Additional Plan I have discussed the patient's case and plan of care with Dr. Tello. Subjective Subjective Date/Time Seen: 09/30/21 09:52 Patient reports: no new complaints, feels better, tolerating liquids well, flatus, bowel movement and afebrile Interval history: Patient seen and examined. He reports having more than 5 liquid bowel movements since his Gastrografin study yesterday. Denies any nausea, vomiting, or bloating. Reportedly tolerating liquids well and requesting to advance his diet. Tolerating activity. No other complaints at this time. Review of Systems Review of Systems: All systems reviewed & are unremarkable except as noted in HPI and below Exam Const: General: no acute distress Orientation/consciousness: patient oriented x3 GI: Inspection: other (Mildly distended, improving) GI Palp: Yes Soft to palpation, No Tenderness to palpation present (GI) and No Guarding due to palpation present (GI) Auscultation: normal bowel sounds Neuro: General: moves all extremities and no focal motor deficits Extrem: General: normal to inspection Psych: Insight: Good insight present (Psych) Objective Data Vital Signs Vital Signs: Vital Signs - 24 hr 09/29/21 14:00 09/29/21 22:00 09/30/21 06:00 Temperature 97.4 F L 97.0 F L 97.1 F L Pulse Rate 79 62 61 Respiratory Rate 19 18 18 Blood Pressure 124/67 111/39 L 125/60 Pulse Oximetry 97 95 95 09/30/21 08:19 Temperature Pulse Rate Respiratory Rate Blood Pressure Pulse Oximetry 95 Intake/Output Intake/Output: Intake & Output 09/27/21 09/28/21 09/29/21 09/30/21 23:59 23:59 23:59 23:59 Intake Total 2100 4300 320 Output Total 100 750 Balance 1999 3550 320 Meds/Results Medications: Active Medications Generic Name Dose Route Start Last Admin Trade Name Freq PRN Reason Stop Dose Admin Hydromorphone HCl 0.5 mg 09/28/21 13:33 Hydromorphone Hcl Inj (*Crx) 1 Mg/Ml Syr IV PUSH Q4H PRN Pain Rated 7-10 Melatonin 5 mg 09/29/21 21:00 09/29/21 20:38 Melatonin 5 Mg Tablet PO 5 mg HS ASHELY Administration Ondansetron HCl 4 mg 09/28/21 13:33 Ondansetron Inj 4 Mg/2 Ml Vial IV PUSH Q4H PRN Nausea Phenol 1 spray 09/28/21 16:52 09/28/21 17:55 Phenol/Sod Pheno [place] (*Bkc) MUCOUS MEM 1 spray PRN PRN Administration Sore Throat Radiology Results: ITS Impressions Abdomen/Pelvis CT 09/28/21 12:40 IMPRESSION: 1. Dilated small bowel with possible transition in the left midabdomen, consistent with obstruction. 2. Cholelithiasis and gallbladder distention which could reflect cholecystitis. Recommend correlation for right upper quadrant tenderness. 3. Fusiform infrarenal abdominal aortic aneurysm. Abdomen Ultrasound 09/28/21 14:00 IMPRESSION: 1. Gallbladder distention and cholelithiasis without definite pericholecystic fluid or gallbladder wall thickening. Findings are equivocal for acute cholecystitis. Consider nuclear hepatobiliary scan. Abdomen X-Ray 09/28/21 14:10 IMPRESSION: 1. Nasogastric tube in the stomach. 2. Small bowel obstruction. Small Bowel X-Ray 09/29/21 10:14 IMPRESSION: Severely distended jejunum, normal calibered ileum. Appearance most consi
== END 2021-09-30 14:00 | disposition home or self-care (01) | DRG 390 ==
LOC: ANHED 13:32 → ANH3MEDSUR 14:15
PROVIDERS: Emergency Medicine; Physician Assistant; Admitting Provider Internal Medicine; Emergency Provider Emergency Medicine; PCP Internal Medicine; Visit Provider Internal Medicine
DX: K56.609 Unspecified intestinal obstruction, unspecified as to partial versus complete obstruction (principal); K80.20 Calculus of gallbladder without cholecystitis without obstruction; I71.4 Abdominal aortic aneurysm, without rupture; E78.5 Hyperlipidemia, unspecified; I10 Essential (primary) hypertension; M10.9 Gout, unspecified; Z79.82 Long term (current) use of aspirin; Z79.899 Other long term (current) drug therapy
CPT/HCPCS: 36415; 74177; 74250; 76705; 80053; 81001; 83605; 83690; 83735; 85025; 85055; 96374; 96375; 99285; A9270; J1200; J2270; J2405; J2543; J7030; J7120; Q9967

== ENCOUNTER 2021-11-03 10:02 | Outpatient (CLI) | payer MEDICARE, OTHER, SELFPAY ==
--- NOTE | ~2021-11-03 | NM_ITS ---
NM hepatobiliary w pharm DATE: 11/03/2021 12:32 INDICATION: Cholelithiasis TECHNIQUE: Serial images of the abdomen after intravenous injection of 6.0 mCi 99m technetium Mebrofe anthony and 2.1 mcg Kinevac. COMPARISON: 09/28/2021 Limited abdominal ultrasound FINDINGS: There is normal hepatic extraction of the radiopharmaceutical activity within the common bi le duct within 15 minutes. Small bowel activity is evident by 15 minutes. Gallbladder activity is evident by 30 to 35 minutes. IMPRESSION: No evidence of acute cholecystitis Reviewed, dictated and finalized at [facility]. Reviewed, dictated and finalized at location [facility].
== END 2021-11-03 10:03 | disposition home or self-care (01) ==
LOC: CHSIMG 10:05
PROVIDERS: PCP Internal Medicine; Visit Provider Internal Medicine
DX: K80.20 Calculus of gallbladder without cholecystitis without obstruction (principal)
CPT/HCPCS: 78227; A9537; J2805

== ENCOUNTER 2022-04-10 07:25 | Outpatient (CLI) | payer MEDICARE, OTHER, SELFPAY ==
--- NOTE | ~2022-04-10 | US_ITS ---
EXAMINATION: US aorta [facility] DATE: 04/10/2022 08:09 INDICATION: Abdominal aortic aneurysm TECHNIQUE: Grayscale, color Doppler, and pulsed Doppler images of the aorta and common iliac arteries were obtained. COMPARISON: None. FINDINGS: The proximal aorta measures 2.3 cm AP. The mid aorta measures 3.4 x 3.6 cm. The distal aorta measures 1.6 cm. The right common iliac artery measures 1.2 cm. The left common iliac artery measures 1.3 cm. IMPRESSION: 1. Fusiform aneurysm of the mid abdominal aorta measuring up to 3.6 x 3.4 cm. Reviewed, dictated and finalized at location [facility].
== END 2022-04-10 07:26 | disposition home or self-care (01) ==
LOC: CHSIMG 07:27
PROVIDERS: PCP Internal Medicine; Visit Provider Internal Medicine
DX: I71.40 Abdominal aortic aneurysm, without rupture, unspecified (principal)
CPT/HCPCS: 76706

== ENCOUNTER 2022-09-14 12:31 | Outpatient (CLI) | payer MEDICARE, OTHER, SELFPAY ==
--- NOTE | ~2022-09-14 | CT_ITS ---
CT Scan of the Chest without Contrast: Clinical Indication: Chronic cough Technique: Contiguous sections were acquired throughout the chest without intravenous contrast. Dose reduction technique was used on this scan by utilizing automated exposure control and iterative recon struction technique. The dose-length product (DLP) was 382.79 mGy-cm. Findings: There is no evidence of any significant mediastinal, hilar or axillary lymphadenopathy. Small calcifi ed mediastinal and right hilar lymph nodes are noted. Coronary artery calcifications are present. There is no evidence of pleural or pericardial effusion. The lungs are clear, some scattered calcified granulomas. Images through the upper abdomen reveal cholelithiasis. Impression: No acute abnormality. Evidence of prior granulomatous disease. Reviewed, dictated and finalized at [facility]. Impression: No acute abnormality. Evidence of prior granulomatous disease.
--- NOTE | 2022-09-14 14:04 | NIOX ---
Niox Report PFT: FeNO Evaluation (NIOX) Start: 09/14/22 13:26 Freq: Status: Active Protocol: Activity Type Activity Date Activity User E-sign Co-sign Detail Recorded Client Recorded Date Recorded By Document 09/14/22 13:26 SHAISTA [id number] 09/14/22 13:26 SHAISTA 09/14/22 13:26 NIOX Evaluation [NIOX Evaluation] -Level of Airway Inflammation Intermediate ( 25-50) [Comments] -NIOX Comments 38 [Charges] -NIOX Measurement Charges Yes
== END 2022-09-14 12:32 | disposition home or self-care (01) ==
LOC: CHSCARD 12:35
PROVIDERS: PCP Internal Medicine; Visit Provider Internal Medicine
DX: R05.9 Cough, unspecified (principal); R94.2 Abnormal results of pulmonary function studies
CPT/HCPCS: 71250; 94060; 94726; 94729; 95012

== ENCOUNTER 2023-04-26 07:23 | Outpatient (CLI) | payer MEDICARE, OTHER, SELFPAY ==
--- NOTE | ~2023-04-26 | US_ITS ---
EXAMINATION: US aorta DATE: 04/26/2023 07:49 INDICATION: Abdominal aortic aneurysm TECHNIQUE: Grayscale, color Doppler, and pulsed Doppler images of the aorta and common iliac arteries were obtained. COMPARISON: 04/10/2022 FINDINGS: The proximal aorta measures 2.8 cm. The mid aorta measures 2.6 cm. Fusiform aortic aneurysm at the mi d to distal aorta measuring up to 3.4 cm maximal diameter. The distal aorta tapers to 2.0 cm. The rig ht common iliac artery measures 1.2 cm. The left common iliac artery measures 1.4 cm. IMPRESSION: 1. No significant change in a fusiform aneurysm in the mid to distal abdominal aorta measuring up to 3.4 cm. Reviewed, dictated and finalized at location [facility].
== END 2023-04-26 07:24 | disposition home or self-care (01) ==
LOC: CHSIMG 07:24
PROVIDERS: PCP Internal Medicine; Visit Provider Internal Medicine
DX: I71.40 Abdominal aortic aneurysm, without rupture, unspecified (principal)
CPT/HCPCS: 76775

== ENCOUNTER 2023-07-05 11:10 | Outpatient (CLI) | payer MEDICARE, OTHER, SELFPAY ==
--- NOTE | ~2023-07-05 | XR_ITS ---
EXAMINATION: XR chest 2V DATE: 07/05/2023 11:36 INDICATION: Chest congestion. Cough. COVID-19 positive. TECHNIQUE: Frontal and lateral views of the chest were obtained. COMPARISON: Chest 2 views 05/08/2020, chest CT 09/14/2022 FINDINGS: There is no pneumonia, pleural effusion, or pneumothorax. The heart size is normal. Calcifi ed right hilar and mediastinal lymph nodes are consistent with old granulomatous disease. There is a suture anchor in right humeral head. IMPRESSION: 1. No acute cardiopulmonary disease. Reviewed, dictated and finalized at location A. OR SHAREPOINT DEVELOPER
[2023-07-05 11:36] LABS: Basophils Absolute Auto 0.02 K/mm3 (0.00-0.10); Basophils Percent Auto 0.4 % (0.0-1.0); Eosinophils Absolute Auto 0.07 K/mm3 (0.02-0.50); Eosinophils Percent Auto 1.2 % (1.0-6.0); Hematocrit 44.6 % (37.0-46.0); Hemoglobin 15.1 g/dL (12.4-15.3); Immature Granulocyte Absolute 0.04 K/mm3 (0.00-0.00); Immature Granulocyte Percent A 0.7 % (0.0-0.0); Immature Platelet Fraction Pct 4.6 % (1.0-7.0); Lymphocytes Absolute Auto 1.07 K/mm3 (1.10-4.50); Lymphocytes Percent Auto 18.8 % (18.0-42.0); Mean Corpuscular HGB Conc 33.9 g/dL (32.0-36.0); Mean Corpuscular Hemoglobin 31.3 pg (27.0-31.0); Mean Corpuscular Volume 92.5 fL (78.0-102.0); Mean Platelet Volume 10.9 fl (8.7-11.0); Monocytes Absolute Auto 0.57 K/mm3 (0.10-0.90); Neutrophils Absolute Auto 3.9 K/mm3 (1.7-7.2); Neutrophils Percent Auto 68.9 % (50.0-70.0); Platelet Count Result 137 K/mm3 (150-420); Red Blood Count 4.82 M/mm3 (4.70-6.10); Red Cell Distribution Width 12.6 % (11.6-14.4); White Blood Count 5.7 K/mm3 (4.8-10.8)
== END 2023-07-05 11:11 | disposition home or self-care (01) ==
LOC: CHSLAB 11:13
PROVIDERS: PCP Internal Medicine; Visit Provider Internal Medicine
DX: U07.1 COVID-19 (principal)
CPT/HCPCS: 36415; 71046; 85025; 85055; 85380

== ENCOUNTER 2023-09-23 00:34 | Day surgery (SDC) | payer MEDICARE, OTHER, SELFPAY ==
[2023-09-14 11:26] VITALS: BMI 29.9
--- NOTE | 2023-09-21 08:15 | SUR.PREOP ---
Patient called regarding upcoming procedure. Reviewed preop instructions, appointment times, and procedure prep.
[2023-09-23 06:16] VITALS: BP 126/69; PULSE 58; RESP 16; TEMP 36.2; O2SAT 97
[2023-09-23] MEDS: LACTATED RINGERS 1,000 ML 150 ML IV CONT (06:28)
--- NOTE | 2023-09-23 07:25 | WPDANESEPPF ---
Anes - Initial Pre Proc Eval Procedure: Operation Date: 09/23/23 07:30 Proposed Procedures p Screening Colonoscopy - Howard Pride DO Date/Time: 09/23/23 07:25 Surgeon: Howard Pride DO Pre Op Diagnosis: hx of colon polyps Patient Data Age: 67 Gender: M Height: 1.83 m Weight: 97.4 kg Last Vital Signs Temp 97.2 F L 09/23/23 06:16 Pulse 58 L 09/23/23 06:16 Resp 16 09/23/23 06:16 BP 126/69 09/23/23 06:16 Pulse Ox 97 09/23/23 06:16 O2 Del Method Room Air 09/23/23 06:16 Allergies Allergy/AdvReac Type Severity Reaction Status Date / Time No Known Allergies Allergy Verified 09/23/23 06:15 Home Medications Medication Instructions Recorded Confirmed Type allopurinol 100 mg tablet 200 mg PO BID 05/22/20 09/14/23 History aspirin 81 mg tablet,delayed 81 mg PO DAILY 05/22/20 09/14/23 History release (Adult Aspirin Regimen) hydrochlorothiazide 12.5 mg capsule 12.5 mg PO DAILY 05/22/20 09/14/23 History atorvastatin 10 mg tablet 5 mg PO DAILY 06/03/20 09/14/23 History omega-3 fatty acids 1 cap PO DAILY 06/03/20 09/14/23 History lisinopril 5 mg tablet 5 mg PO BID 09/28/21 09/14/23 History Patient hx anesthesia problems: none Family hx anesthesia problems: none Results Review: All pre-operative results and documents have been reviewed as part of the pre-operative evaluation. [facility] Past Medical History Medical History Aneurysm of infrarenal abdominal aorta 3.6 cm fusiform infrarenal abdominal aortic aneurysm noted on CT on 09/28/2021. Gout Hyperlipidemia Hypertension Surgical History Surgical History History of basal cell carcinoma excision (05/2012) Right ear. History of cardiac catheterization (05/2020) Patient was having chest pain with a positive stress test. No evidence of coronary disease on cath. History of inguinal hernia repair (2005) History of tonsillectomy Family History Family History Father Heart disease Gout Diabetes mellitus Grandparent Heart disease Social History Social History Social History: Surrogate decision maker: Cara Morgan, . Code status: Full code. Smoking packs per day: 1 Smoking cigarettes per day: 20.0 Years smoked: 15 Smoking pack-years: 15.00 Smoking status: Former smoker Tobacco type: cigarettes Second hand tobacco smoke exposure: No Alcohol intake: current Drinks per week: 1 Alcohol use details: rarely Substance use: never Substance use type: does not use Living arrangements: with family Occupation/Education: retired Spiritual care concerns: No Anes - Eval Final PreProcedure Day of Procedure 09/23/23 07:25 Patient weight: normal Heart: regular rate and rhythm Lungs: clear to auscultation Airway: Mallampati scale class II Neurological: alert and oriented Last oral intake: >/= 8 hours ASA classification: III Emergent: no Anesthetic plan: proceed Anesthesia type and monitoring: general GIVS and standard monitoring Results Review: All pre-operative results and documents have been reviewed as part of the pre-operative evaluation. Informed Consent: The patient's anesthetic plan and its attendant risks and benefits were discussed with the patient/family/POA. Questions were solicited and answers provided to the satisfaction of the patient/family/POA.
--- NOTE | 2023-09-23 07:28 | PM.IMHP ---
H&P: HPI History of Present Illness Date/Time: 09/23/23 07:28 Chief Complaint: History of colon polyps Narrative: this is a 67-year-old man who presents for colonoscopy. Last colonoscopy was about 5 years ago and a couple polyps were removed. Denies any hematochezia or melena. Denies family history of colon cancer. Review of Systems Review of Systems: All systems reviewed & are unremarkable except as noted in HPI and below Constitutional: Constitutional: Denies chills, Denies fever(s), Denies headache(s) and Denies weight loss Eyes: Eyes: Denies change in vision ENT: Denies dizziness, Denies headache(s), Denies neck mass and Denies throat swelling Cardiovascular: Cardiovascular: Denies chest pain, Denies lightheadedness and Denies dyspnea Respiratory: Respiratory: Denies cough, Denies dyspnea and Denies wheezing Gastrointestinal: Gastrointestinal: Denies abdominal pain, Denies change in bowel habits, Denies nausea and Denies vomiting Genitourinary: Genitourinary: Denies hematuria and Denies dysuria Musculoskeletal: Musculoskeletal: Reports as per HPI Integumentary/Breasts: Skin/Breast: Reports as per HPI Neurologic: Denies dizziness and Denies headache(s) Allergic/Immunologic: Allergic/Immunologic: Denies throat swelling and Denies wheezing [facility] Past Medical History Medical History Aneurysm of infrarenal abdominal aorta 3.6 cm fusiform infrarenal abdominal aortic aneurysm noted on CT on 09/28/2021. Gout Hyperlipidemia Hypertension Surgical History Surgical History History of basal cell carcinoma excision (05/2012) Right ear. History of cardiac catheterization (05/2020) Patient was having chest pain with a positive stress test. No evidence of coronary disease on cath. History of inguinal hernia repair (2005) History of tonsillectomy Family History Family History Father Heart disease Gout Diabetes mellitus Grandparent Heart disease Social History Social History Social History: Surrogate decision maker: Cara Morgan, . Code status: Full code. Smoking packs per day: 1 Smoking cigarettes per day: 20.0 Years smoked: 15 Smoking pack-years: 15.00 Smoking status: Former smoker Tobacco type: cigarettes Second hand tobacco smoke exposure: No Alcohol intake: current Drinks per week: 1 Alcohol use details: rarely Substance use: never Substance use type: does not use Living arrangements: with family Occupation/Education: retired Spiritual care concerns: No Meds Home Medications and Allergies Home Medications Medication Instructions Recorded Confirmed Type allopurinol 100 mg tablet 200 mg PO BID 05/22/20 09/14/23 History aspirin 81 mg tablet,delayed 81 mg PO DAILY 05/22/20 09/14/23 History release (Adult Aspirin Regimen) hydrochlorothiazide 12.5 mg capsule 12.5 mg PO DAILY 05/22/20 09/14/23 History atorvastatin 10 mg tablet 5 mg PO DAILY 06/03/20 09/14/23 History omega-3 fatty acids 1 cap PO DAILY 06/03/20 09/14/23 History lisinopril 5 mg tablet 5 mg PO BID 09/28/21 09/14/23 History Allergies Allergy/AdvReac Type Severity Reaction Status Date / Time No Known Allergies Allergy Verified 09/23/23 06:15 Vital Signs Vital Signs - 24 hr 09/23/23 06:16 Temperature 36.2 C L Pulse Rate 58 L Respiratory Rate 16 Blood Pressure 126/69 Pulse Oximetry 97 Oxygen Delivery Room Air Exam Const: General: no acute distress and alert Orientation/consciousness: patient oriented x3 HENMT: Head: normocephalic and atraumatic Ears: hearing grossly normal bilaterally Face/Nose/Sinus: Normal nares present Mouth: Yes Normal oral and palatal mucosa present Eyes: Periorbital: periorbital findings normal Sclera: sclerae normal E
[2023-09-23 07:54] VITALS: BP 90/54; PULSE 61; RESP 16; O2SAT 95
[2023-09-23 08:04] VITALS: BP 96/68; PULSE 63; RESP 15; O2SAT 99
[2023-09-23 08:14] VITALS: BP 102/63; PULSE 62; RESP 17; O2SAT 98
== END 2023-09-23 08:17 | disposition home or self-care (01) ==
PROVIDERS: PCP Internal Medicine; Visit Provider Surgery
PROC: 0DJD8ZZ Inspection of Lower Intestinal Tract, Via Natural or Artificial Opening Endoscopic (ICD-10-PCS; CPT 45378; principal; 2023-09-23 07:30)
DX: Z12.11 Encounter for screening for malignant neoplasm of colon (principal); K64.8 Other hemorrhoids; I10 Essential (primary) hypertension; E78.5 Hyperlipidemia, unspecified; Z79.82 Long term (current) use of aspirin; Z98.890 Other specified postprocedural states; Z98.61 Coronary angioplasty status; Z87.891 Personal history of nicotine dependence; Z86.010 Personal history of colon polyps; Z86.79 Personal history of other diseases of the circulatory system; Z85.828 Personal history of other malignant neoplasm of skin; Z82.49 Family history of ischemic heart disease and other diseases of the circulatory system
CPT/HCPCS: G0105; J2371; J2704; J7120

== ENCOUNTER 2023-12-06 15:49 | Outpatient (CLI) | payer MEDICARE, OTHER, SELFPAY ==
--- NOTE | ~2023-12-06 | XR_ITS ---
EXAMINATION: XR hand RT min 3V DATE: 12/06/2023 16:14 INDICATION: Right hand injury TECHNIQUE: Posteroanterior, oblique and lateral views of the right hand were obtained. COMPARISON: None. FINDINGS: Bone alignment is normal. No fracture. Polyarticular osteoarthritis, moderate severity at the first c arpometacarpal, first interphalangeal and third distal interphalangeal joints and mild at the distal radioulnar and multiple metacarpophalangeal and remaining interphalangeal joints. There is a tiny sub millimeter linear density, potentially foreign body projecting over the musculature of the talar sunshine ence on the posterior anterior and oblique projections which is unable to be visualized on the latera l projection potentially obscured by superimposed bone. IMPRESSION: 1. 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 No acute osseous abnormality. 2. Submillimeter possible foreign body projecting over the thenar eminence. Reviewed, dictated and finalized at location A. IMPRESSION: 1. 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 No acute os seous abnormality. 2. Submillimeter possible foreign body projecting over the thenar eminence.
== END 2023-12-06 15:50 | disposition home or self-care (01) ==
LOC: CHSIMG 15:55
PROVIDERS: PCP Internal Medicine; Visit Provider Internal Medicine
DX: S69.91XA Unspecified injury of right wrist, hand and finger(s), initial encounter (principal); M19.041 Primary osteoarthritis, right hand
CPT/HCPCS: 73130

== ENCOUNTER 2024-03-16 07:25 | Outpatient (CLI) | payer MEDICARE, OTHER, SELFPAY ==
--- NOTE | ~2024-03-16 | US_ITS ---
EXAMINATION: US aorta DATE: 03/16/2024 07:59 INDICATION: Abdominal aortic aneurysm TECHNIQUE: Grayscale, color Doppler, and pulsed Doppler images of the aorta and common iliac arteries were obtained. COMPARISON: None. FINDINGS: The proximal aorta measures 2.0 cm. The mid aorta measures 3.6 cm. The distal aorta measures 2.7 cm. The right common iliac artery measures 1.4 cm. The left common iliac artery measures 1.6 cm. IMPRESSION: 1. Fusiform aneurysm of the mid abdominal aorta measuring up to 3.6 cm. Reviewed, dictated and finalized at location B.
--- NOTE | ~2024-03-16 | US_ITS ---
EXAMINATION: US right upper quadrant DATE: 03/16/2024 07:58 INDICATION: Cholelithiasis. TECHNIQUE: Multiple grayscale and Doppler ultrasound images of the abdomen were obtained. COMPARISON: Ultrasound 09/28/2021, chest CT 09/14/2022 FINDINGS: The pancreas is obscured by obesity and bowel gas. The liver is normal without focal lesion . There is normal flow in main portal vein. The gallbladder is normal in size and contains a gallston e. No gallbladder wall thickening or sonographic [place] sign. The common duct is normal and measures 3 mm. IMPRESSION: 1. Cholelithiasis. No evidence of acute cholecystitis. Reviewed, dictated and finalized at location A.
== END 2024-03-16 07:26 | disposition home or self-care (01) ==
LOC: CHSIMG 07:26
PROVIDERS: PCP Internal Medicine; Visit Provider Internal Medicine
DX: K80.20 Calculus of gallbladder without cholecystitis without obstruction (principal); I71.40 Abdominal aortic aneurysm, without rupture, unspecified
CPT/HCPCS: 76705; 76775

== ENCOUNTER 2024-03-24 08:01 | Outpatient (CLI) | payer MEDICARE, OTHER, SELFPAY ==
--- NOTE | ~2024-03-24 | NM_ITS ---
EXAMINATION: NM hepatobiliary w pharm DATE: 03/24/2024 10:51 CDT INDICATION: Cholelithiasis. Right-sided pain.. COMPARISON: Ultrasound dated 03/16/2024 and nuclear hepatobiliary scan dated 11/03/2021. TECHNIQUE: 6.2 mCi Tc-99m mebrofenin (Choletec) was administered intravenously. Scintigraphic images of the abdomen were obtained for one hour. At 1 hour 2 mcg sincalide (Kinevac) was administered by s low intravenous infusion, and imaging was continued for 30 minutes. Gallbladder ejection fraction was calculated by the technologist.] FINDINGS: There is normal clearance of radiotracer from the blood pool. There is homogeneous tracer u ptake by the liver. Activity progresses to the gallbladder and bowel. Gallbladder ejection fraction is 68% (normal 10-90%, but most patient with gallbladder dysfunction have GBEF < 35%).] IMPRESSION: 1. Normal hepatobiliary scan. Reviewed, dictated and finalized at location B.
== END 2024-03-24 08:02 | disposition home or self-care (01) ==
PROVIDERS: PCP Internal Medicine; Visit Provider Internal Medicine
DX: K80.20 Calculus of gallbladder without cholecystitis without obstruction (principal)
CPT/HCPCS: 78227; A9537; J2805

== ENCOUNTER 2024-06-12 15:19 | Outpatient (CLI) | payer MEDICARE, OTHER, SELFPAY ==
--- NOTE | ~2024-06-12 | XR_ITS ---
EXAMINATION: XR sacroiliac joints min 3V DATE: 06/12/2024 15:43 INDICATION: Low back pain. TECHNIQUE: 3 views of the sacroiliac joints were obtained. COMPARISON: None. FINDINGS: Alignment is normal. No fracture. There is mild osteoarthritis of the sacroiliac joints and hip joints. There is mild lumbar spondylosis. IMPRESSION: 1. Mild osteoarthritis of the sacroiliac joints. Reviewed, dictated and finalized at location A. MMAKER
--- NOTE | ~2024-06-12 | XR_ITS ---
EXAMINATION: XR lumbar spine 2-3V DATE: 06/12/2024 15:43 INDICATION: Low back pain. TECHNIQUE: 3 views of lumbar spine were obtained. COMPARISON: None. FINDINGS: There is 4 mm anterolisthesis of L4 on L5. There is mild chronic anterior wedging of T12 ve rtebral body. There is severely decreased disc height at L5-S1 with interbody fusion. There are endpl ate osteophytes at all levels. There is multilevel severe facet joint osteoarthritis. IMPRESSION: 1. Mild lumbar spondylosis. Reviewed, dictated and finalized at location A. CTURAL STEEL ENGINEER IMPRESSION: 1. Mild lumbar spondylosis.
== END 2024-06-12 15:20 | disposition home or self-care (01) ==
PROVIDERS: PCP Internal Medicine; Visit Provider Internal Medicine
DX: M54.50 Low back pain, unspecified (principal); M47.898 Other spondylosis, sacral and sacrococcygeal region; M43.06 Spondylolysis, lumbar region
CPT/HCPCS: 72100; 72202

== ENCOUNTER 2024-06-29 10:34 | Outpatient (CLI) | payer MEDICARE, OTHER, SELFPAY ==
--- NOTE | ~2024-06-29 | MR_ITS ---
EXAMINATION: MR lumbar spine wo con DATE: 06/29/2024 11:09 INDICATION: Low back pain radiating to both legs. TECHNIQUE: Magnetic resonance imaging (MRI) of the lumbar spine was performed without intravenous con trast. Sequences included sagittal T2-weighted FSE, sagittal T2-weighted FS FSE, sagittal T1-weighted FSE, and axial T2-weighted FSE. COMPARISON: Lumbar spine radiographs 06/12/2024 FINDINGS: There are cysts in left kidney measuring up to 7 mm. There is a 3.5 cm fusiform aneurysm of infrarenal aorta. There is 3 mm anterolisthesis of L4 on L5. There is mild chronic anterior wedging of T12 vertebral body. There is a hemangioma in T12 vertebral body. There is severely decreased disc height at L5-S1 with interbody fusion. The distal spinal cord signal intensity is normal. The conus m edullaris is at T12-L1. The following disc levels are specifically discussed: L1-L2: The disc is bulging and has an annular fissure. There is moderate bilateral facet joint osteoa rthritis. There is mild bilateral neural foraminal stenosis. There is mild central canal stenosis. L2-L3: The disc is bulging and has an annular fissure. There is moderate bilateral facet joint osteoa rthritis. There is mild bilateral neural foraminal stenosis. There is mild central canal stenosis. L3-L4: The disc is bulging and has an annular fissure. There is moderate bilateral facet joint osteoa rthritis. There is mild bilateral neural foraminal stenosis. There is mild central canal stenosis. L4-L5: The disc is bulging. There is severe bilateral facet joint osteoarthritis. There is mild bilat eral neural foraminal stenosis. There is no central canal stenosis. L5-S1: The disc is bulging. There is moderate right and severe left facet joint osteoarthritis. There is mild bilateral neural foraminal stenosis. There is no central canal stenosis. IMPRESSION: 1. Mild lumbar spondylosis. Reviewed, dictated and finalized at location A. CLOTH EXAMINER IMPRESSION: 1. Mild lumbar spondylosis.
== END 2024-06-29 10:35 | disposition home or self-care (01) ==
LOC: CHSIMG 10:36
PROVIDERS: PCP Internal Medicine; Visit Provider Internal Medicine
DX: M54.50 Low back pain, unspecified (principal); M43.06 Spondylolysis, lumbar region
CPT/HCPCS: 72148

== ENCOUNTER 2025-04-10 07:32 | Outpatient (CLI) | payer MEDICARE, OTHER, SELFPAY ==
--- NOTE | ~2025-04-10 | US_ITS ---
EXAMINATION: US aorta, 04/10/2025 7:38 CDT HISTORY: ABDOMINAL ANEURYSM Comparison: None Technique: Levi-scale and color Doppler images were obtained There is aneurysmal dilatation of the aorta maximally measuring 3.9 x 3.5 cm, proximal right iliac artery 1.1 cm, proximal left common iliac artery 1.3 cm. Scattered plaque is noted throughout the visualized aorta. IMPRESSION: Aneurysm detailed above. CTA recommended Reviewed, dictated and finalized at location P.
--- OUTSIDE RECORDS SUMMARY | 2025-04-10 07:36 | XMS_ITS | Clinical Summary ---
Author Organization [facility] Address [address] [address] Phone Care Team Providers Care Director Integrated Name Role Phone Gallo Jacob MD Primary Care Provider [phone] Allergies No known active allergies Medications hydroCHLOROthiaz myla (MICROZIDE) 12.5 MG Capsule Take 12.5 mg by mouth daily. 05/05/2018 Active aspirin EC 81 MG Tablet Delayed Response Take 81 mg by mouth daily. Active allopurinol (ZYLOPRIM) 100 MG Tablet TAKE 2 TABLETS BY MOUTH EVERY DAY 08/03/2020 Active atorvastatin (LIPITOR) 10 MG Tablet TAKE 1/2 A TABLET BY MOUTH EVERY DAY 08/03/2020 Active lisinopril (PRINIVIL, ZESTRIL) 5 MG Tablet TAKE 1 TABLET BY MOUTH TWICE A DAY 07/17/2020 Active [place]-3 Fatty Acids (FISH OIL PO) Take by mouth daily. Active MAGNESIUM PO Take by mouth daily. Active omeprazole (PriLOSEC) 20 MG CAPSULE DELAYED RELEASEIndicatio ns:Gastroesophag eal reflux disease, unspecified whether esophagitis present TAKE 1 CAPSULE BY MOUTH TWICE A DAY 180 Capsule 1 11/07/2020 Active Active Problems Problem Noted Date Diagnosed Date Gastroesophageal reflux disease 08/15/2020 Immunizations Immunization Administration Dates Next Due Influenza Vaccine, Quadrivalent, PF 04/11/2019 Influenza, Recombinant, Quadrivalent,injectable, Pf 04/21/2020 Influenza, Seasonal, Injectable, Undefined 03/21 Pneumococcal Vaccine - 13 Valent 04/18/2015 TDAP Vaccine 04/13/2018 Zoster Vaccine Recombinant 07/28/2019,05/10/2019 Zoster Vaccine, live 04/23/2017 Family History Medical History Relation Name Comments Heart Attack Father Relation Name Status Comments Father Mother Alive Social History Tobacco Use Types Packs/Day Years Used Date Smoking Tobacco: Former Cigarettes 1 15 0 07/08/1979 - 07/08/1994 Smokeless Tobacco: Never Tobacco Cessation:Counseling Given: No Alcohol Use Standard Drinks/Week Comments Yes 0 (1 standard drink = 0.6 oz pur e alcohol) socially Sexually Active Control Partners Comments Yes Sex and Gender Information Value Date Recorded Sex Assigned at Not on file Legal Sex Male 8:56 PM CDT Gender Identity Not on file Sexual Orientation Not on file Last Filed Vital Signs Vital Sign Reading Time Taken Comments Blood Pressure 111/63 10/02/2020 7:59 AM CDT Pulse 51 10/02/2020 7:59 AM CDT Temperature 36 C (96.8 F) 10/02/2020 7:59 AM CDT Respiratory Rate 14 10/02/2020 7:59 AM CDT Oxygen Saturation 97% 10/02/2020 7:59 AM CDT Inhaled Oxygen Concentration - - Weight 106.1 kg (234 lb) 09/13/2020 1:00 PM CDT Height 182.9 cm (6') 09/13/2020 1:00 PM CDT Body Mass Index 31.74 09/13/2020 1:00 PM CDT Plan of Treatment Health Maintenance Due Date Last Done Comments Hepatitis C Virus (HCV) Screening 1956 Cologuard 2001 Immunochemical Fecal Occult Blood 2001 PSA Discussion 10/18/2011 Pneumococcal Immunization (5 0+ years) (2 of 2 - PCV20 or PCV21) 04/18/2016 04/18/2015 Colonoscopy 08/30/2023 08/29/2018 Colorectal Cancer Screening 08/30/2023 Influenza Immunization (#1) 2025 1010/2019, 04/11/2019, 03/21/2013 SARS-COV-2 Immunization (3 - season) 2025 05/09/2021, 04/18/2021 Respiratory Syncytial Virus (RSV) Immunization (Adult) (1 - 1-dose 75+ series) 10/18/2031 Pneumococcal Immunization Combined Discontinued 04/18/2015 DTaP/Tdap/Td Immunization Discontinued 04/13/2018 Zoster Immunization Completed 07/28/2019, 05/10/2019, 04/23/2017 Hepatitis B Immunization Aged Out No longer eligible based on patient's age to complete this topic Human Papillomavirus (HPV) Immunization Aged Out No longer eligible based on patient's age to complete this topic Meningococcal Immunization (ACWY) Aged Out No longer eligible based on patient's age to complete this topic Rotavirus Immunization Aged Out No lo nger eligible based on patient's age to complete this topic Insurance [facility] Care Teams Director Integrated Relationship Specialty Start Date End Date Gallo Jacob MD [address] [place] [address] PCP - General Internal Medicine 07/05/18
--- OUTSIDE RECORDS SUMMARY | 2025-04-10 07:36 | XMS_ITS | Encounter Summary ---
Author Organization [facility] Address [address] [place] [place] [address] Phone Care Team Providers Care Community Service Manager Name Role Phone Gallo Jacob MD Primary Care Provider Reason for Visit * Reason Comments Medication Refill Encounter Details Date Type Department Care Team (Late st Contact Info) Description 11/07/2020 Refill [facility] - Gastroenterology - [place] [address] [place] [id number] Wendi Felix Chelsey, PAC [address] [place] [address] Medication Refill Social History Tobacco Use Types Packs/Day Years Used Date Smoking Tobacco: Former Cigarettes 1 15 0 07/08/1979 - 07/08/1994 Smokeless Tobacco: Never Alcohol Use Standard Drinks/Week Comments Yes 0 (1 standard drink = 0.6 oz pur e alcohol) socially Sexually Active Control Partners Comments Yes Sex and Gender Information Value Date Recorded Sex Assigned at Not on file Legal Sex Male 8:56 PM CDT Gender Identity Not on file Sexual Orientation Not on file documented as of this encounter Miscellaneous Notes * Telephone Encounter - Gavi Galeas CMA - 11/07/2020 8:12 AM CDT Pharmacy requesting refill of: Requested Prescriptions Pending Prescriptions Disp Refills ??? omeprazole (PriLOSEC) 20 MG CAPSULE DELAYED RELEASE [Pharmacy Med Name: OMEPRAZOLE DR 20 MG CAPSULE] 180 Capsule 0 Sig: TAKE 1 CAPSULE BY MOUTH TWICE A DAY Last fill: 08/15/2011 Patients last OV with GI: 08/15/2020 Next Office Visit with GI: None scheduled documented in this encounter Plan of Treatment Not on file documented as of this encounter Visit Diagnoses Diagnosis Gastroesophageal reflux disease, unspecified whether esophagitis present documented in this encounter Care Teams Community Service Manager Relationship Specialty Start Date End Date Gallo Jacob MD [address] [place] [address] PCP - General Internal Medicine 07/05/18 documented as of this encounter
--- OUTSIDE RECORDS SUMMARY | 2025-04-10 07:37 | XMS_ITS | Clinical Summary ---
Author Organization [facility] [address] Address [address] [place] [address] Care Team Providers Care Book Binder Name Role Phone Gallo Jacob MD Primary Care Provider [phone] Allergies No known active allergies Medications allopurinoL (ZYLOPRIM) 100 mg tabletIndicatio ns:prevention of acute gout attack Take 200 mg by mouth every morning 08/03/2020 Active aspirin 81 mg enteric coated tabletIndicatio ns:prevention Take 81 mg by mouth every morning Active atorvastatin (LIPITOR) 10 mg tabletIndicatio ns:hyperlipidem ia Take 5 mg by mouth every morning 08/03/2020 Active hydroCHLOROthia zide (MICROZIDE) 12.5 mg capsuleIndicati ons:hypertensio n Take 12.5 mg by mouth every morning 05/05/2018 Active lisinopriL (PRINIVIL,ZESTR [place]) 5 mg tabletIndicatio ns:hypertension Take 5 mg by mouth 2 (two) times a day 07/17/2020 Active omeprazole (PriLOSEC) 20 mg capsuleIndicati ons:Treatment of Non-Bleeding Gastric Disorder Take 20 mg by mouth 2 (two) times a day 08/15/2020 Active acetaminophen (TYLENOL) 500 mg tablet Take 1,000 mg by mouth every 6 (six) hours as needed for pain Active magnesium gluconate 200 mg tabletIndicatio ns:hypomagnesem ia Take 200 mg by mouth daily Active omega 0-jzc-nap-fish oil (Fish Oil) 1,000 mg (120 mg-180 mg) capsule Take 1 capsule by mouth every morning Active oxyCODONE (ROXICODONE) 5 mg immediate release tabletIndicatio ns:Pain TAKE 1 TO 2 TABLETS EVERY 4 TO 6 HOURS NEEDED FOR PAIN 40 tablet 10/23/2020 Active docusate sodium (Colace) 100 mg capsuleIndicati ons:constipatio n Take 1 capsule (100 mg total) by mouth 2 (two) times a day 30 capsule 10/23/2020 Active scopolamine 1 mg over 3 days patch 3 dayIndications: placed per pt. Place 1 patch on the skin once 10/23/2020 Active Active Problems Problem Noted Date Diagnosed Date Complete tear of right rotator cuff 2020 Overview (2020): Added automatically from request for surgery [id number] Gastroesophageal reflux disease 08/15/2020 Immunizations Immunization Administration Dates Next Due Influenza, Quadrivalent, Rec ombinant, Egg Free, Preservative Free, Intramuscular 04/21/2020 Influenza, Quadrivalent, Spl it, Preservative Free, Intramuscular 04/11/2019 Influenza, Trivalent, IM (MDV) 03/21/2013 Influenza, Unspecified 03/21/2013 Pneumococcal Conjugate PCV 13 04/18/2015 Tdap 04/13/2018 ZOSTER LIVE 04/23/2017 ZOSTER Recombinant 07/28/2019,05/10/2019 Surgical History Surgery Date Site/Laterality Comments HERNIA REPAIR 05/28/2006 - 06/27/2006 Left inguinal CARDIAC CATHETERIZATION 05/28/2020 - 06/27/2020 nbormal, results in EPIC under media ESOPHAGOGASTRODUODENOSCOPY 09/26/2020 - 10/25/2020 SKIN CANCER EXCISION right forehead, nose, left arm in office Medical History Medical History Date Comments Cancer (HCC) skin Gout Dyslipidemia HTN (hypertension) GERD (gastroesophageal reflux disease) just finishing 90 day course of omeprazole per MD, no further sx Family History Medical History Relation Name Comments Gout Father Heart disease Father Hypertension Father Hypertension Mother Relation Name Status Comments Father Mother Social History Tobacco Use Types Packs/Day Years Used Date Smoking Tobacco: Former Cigarettes 1 15 1 982 - 1995 Smokeless Tobacco: Never AUDIT-C Answer Date Recorded Q1: How often do you have a drink containing alc ohol? 2-4 times a month 10/18/2020 Q2: How many drinks containi ng alcohol do you have on a typical day when you are drinking? 1 or 2 10/18/2020 Q3: How often do you have si x or more drinks on one occasion? 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 Gender Identity Not on file Sexual Orientation Not on file Obstetrics History Last Filed Vital Signs Vital Sign Reading Time Taken Comments Blood Pressure 121/72 10/24/2020 5:05 PM CDT Pulse 67 10/24/2020 5:05 PM CDT Temperature 36.7 C (98.1 F) 10/24/2020 5:05 PM CDT Respiratory Rate 19 10/24/2020 5:05 PM CDT Oxygen Saturation 93% 10/24/2020 5:05 PM CDT Inhaled Oxygen Concentration - - Weight 101.3 kg (223 lb 4.8 oz) 021 10:55 AM CDT Height 182.9 cm (6') 10/24/2020 10:55 AM CDT Body Mass Index 30.28 10/24/2020 10:55 AM CDT Plan of Treatment Not on file Medical Devices Implanted Type Area Industrial Safety And Health Technician Device Identifier Shelf Expiration Date Model / Serial / Lot [employer] Ar-3670 Set Implant Ar[employer]rex Fibertak Biceps Sterile Latex Free - S00 - [id number] Implanted:Qty: 1 on 10/24/2020 by Navneet Strickland MD at [facility] [place] Right: Shoulder [employer] 06/27/2025 AR-3670 / 00 / [id number] [employer] Ar-1927bct Corkscrew Suturetape 5.5mm 14.7mm Bioabsorbable Full Thread 1.3mm - S00 - [id number] Implanted:Qty: 1 on 10/24/2020 by Navneet Strickland MD at [facility] [place] Right: Shoulder [employer] 06/27/2022 AR-1927BCT / 00 / [id number] [employer] Ar-1927bct Corkscrew Suturetape 5.5mm 14.7mm Bioabsorbable Full Thread 1.3mm - S00 - [id number] Implanted:Qty: 1 on 10/24/2020 by Navneet Strickland MD at [facility] [place] Right: Shoulder [employer] 06/27/2022 AR-1927BCT / 00 / [id number] [employer] Ar-1927bct Corkscrew Suturetape 5.5mm 14.7mm Bioabsorbable Full Thread 1.3mm - S00 - [id number] Implanted:Qty: 1 on 10/24/2020 by Navneet Strickland MD at [facility] [place] Right: Shoulder [employer] 06/27/2022 AR-1927BCT / 00 / [id number] [employer] Ar-2324 Bcm Swivelock 4.75mm 24.5mm Self Punch Vent Shoulder Sevier Suture - S00 - [id number] Implanted:Qty: 1 on 10/24/2020 by Navneet Strickland MD at [facility] [place] Right: Shoulder [employer] 06/27/2024 AR-2324BCM / 00 / [id number] [employer] Ar-2324 Bcm Swivelock 4.75mm 24.5mm Self Punch Vent Shoulder Sevier Suture - S00 - [id number] Implanted:Qty: 1 on 10/24/2020 by Navneet Strickland MD at [facility] [place] Right: Shoulder [employer] 06/27/2024 AR-2324BCM / 00 / [id number] Insurance [facility] [place] [address] [address] Advance Directives For more information, please contact: [phone] Documents on File Type Date Recorded Patient Resource Coordinator Expl anation ADVANCE DIRECTIVE 10/28/2020 1:42 PM P[employer] THERAPIST-MEDICAL Care Teams Book Binder Relationship Specialty Start Date End Date Gallo Jacob MD [address] [place] [address] PCP - General Internal Medicine 06/03/20
== END 2025-04-10 07:33 | disposition home or self-care (01) ==
PROVIDERS: PCP Internal Medicine; Visit Provider Internal Medicine
DX: I72.3 Aneurysm of iliac artery (principal)
CPT/HCPCS: 76775